=== PATIENT | male | born 1945 | race Caucasian/White ===

== ENCOUNTER 2019-11-15 19:34 | Inpatient (IN) | payer OTHER ==
--- NOTE | 2019-11-15 19:48 | PDOC ---
Attending Attestation - Resident Resident Name: Franklin Young - ED Attending Attestation I have performed the following: I have examined & evaluated the patient, The case was reviewed & discussed with the resident, I agree w/resident's findings & plan - HPI HPI: 11/15/19 20:17 see resident hpi - Physicial Exam PE: 11/15/19 20:17 see resident exam - Medical Decision Making 11/15/19 20:18 74-year-old male sent from a half-way facility with incomplete history, apparently needing admission due to aspiration risk and possible G-tube candidacy Plan for labs and admission to medical service for further evaluation and management Discharge - Discharge Information Problems reviewed: Yes Clinical Impression/Diagnosis: Unable to eat, At risk for aspiration Condition: Fair - Follow up/Referral Referrals: Christ Holder MD [Primary Care Provider] - - Patient Discharge Instructions - Post Discharge Activity
[2019-11-15 19:58] VITALS: BMI 26.9
--- NOTE | 2019-11-15 21:28 | PDOC ---
History of Present Illness - General Chief Complaint: G Tube Problem Stated Complaint: G TUBE REPLACEMENT Time Seen by Provider: 11/15/19 19:45 - History of Present Illness Initial Comments: 11/15/19 21:21 74 yo male presenting to ED with pmh of chronic resp failure, Sepsis, Cdif, and myasthenia gravis sent from [facility] for G Tube placement referred by Dr. Holder. Per [facility] nurse pt had a spit and swallow test 2-3 days ago and states that he was silently swallowing his food and medications. Since then he has been NPO. Pt was recently discharged from [facility] on 11/09 due to hypotension. He was diagnosed with septicemia and right sided pic line and suprapubic catheter were placed. He was also started on Cefazolin and Vancomycin. Per [facility] nurse pt also had bilateral ext swelling starting since he was discharged from [facility]. Today pt is nonverbal and answers yes no questions. He explains he has not had bowel movement in few days due to not eating since Friday. He has been also having chronic swelling of his extremities but has been increased in the past few weeks. Pt besides that has denied any fevers, chills, or chest pain. PMH: Chronic resp failure Septicemia Myasthenia gravis osteomyelitis meds per [facility] nurse: Percocet, Cefazolin and vancomycin Allergies: Penicillin, aspirin, procainamide PSh: colostomy, suprapubic cath, thoracostomy Social: From [facility] PCP: Dr. Holder Past History - Medical History Allergies/Adverse Reactions: Allergies Allergy/AdvReac Type Severity Reaction Status Date / Time aspirin Allergy Unknown Verified 11/15/19 21:31 Penicillins Allergy Unknown Verified 11/15/19 21:31 procainamide Allergy Unknown Verified 11/15/19 21:31 - Psycho-Social/Smoking History Smoking History: Never smoked - Substance Abuse Hx (Audit-C & DAST Scrn) How often the patient has a drink containing alcohol: Never Score: In Men: 4 or > Positive; In Women: 3 or > Positive: 0 Screen Result (Pos requires Nsg. Audit-10AR): Negative In the last yr the pt used illegal drug/Rx for NonMed reason: No Score: Yes response is considered Positive: 0 Screen Result (Positive result requires Nsg. DAST-10): Negative Review of Systems - Review of Systems Comments:: 11/15/19 21:34 GENERAL/CONSTITUTIONAL: No fever or chills. No change in weakness. HEAD, EYES, EARS, NOSE AND THROAT: No change in vision. No ear pain or discharge. CARDIOVASCULAR: No chest pain. Explains he is having trouble breathing. RESPIRATORY: No cough, wheezing, or hemoptysis. GASTROINTESTINAL: Nausea and abdominal pain GENITOURINARY: No dysuria, frequency, or change in urination. MUSCULOSKELETAL:Swelling of all extremities SKIN: Multiple pressure wounds around body NEUROLOGIC: No headache, vertigo, loss of consciousness, or change in strength/sensation. ENDOCRINE: Has not eaten anything in two days ALLERGIC/IMMUNOLOGIC: No hives or skin allergy. *Physical Exam - Vital Signs Last Vital Signs Temp Pulse Resp BP Pulse Ox 97.1 F L 89 25 H 98/71 100 11/15/19 19:39 11/15/19 19:39 11/15/19 20:00 11/15/19 19:39 11/15/19 19:39 - Physical Exam 11/15/19 21:36 GENERAL: Awake, alert, in no acute distress HEAD: No signs of trauma, normocephalic, atraumatic EYES: PERRLA, EOMI, sclera anicteric, conjunctiva clear ENT: Auricles normal inspection, hearing grossly normal, nares patent, NECK:Thoracostomy tube looks patent and in place LUNGS: Bilateral rales. HEART: Regular rate and rhythm, normal S1 and S2, no murmurs, rubs or gallops, peripheral pulses normal and equal bilaterally. ABDOMEN: Soft, nontender, normoactive bowel sounds. Colostomy tube placed on right side EXTREMITIES : 4+ edema on all ext NEUROLOGICAL: Cranial nerves II through XII grossly intact. Unable to speak or walk SKIN: Grade 2 wound on L heel, grade 3 wound on left leg, Grade 4 wound on right leg, grade 1 wound on right heel, wounds all along gluteus region Heart Score/ECG Review - ECG Impressions Comment:: 11/15/19 22:29 Normal Sinus rhythm at [address] segment changes Prolonged QRS RBBB Normal [place] and QT interval ED Treatment Course - LABORATORY CBC & Chemistry Diagram: 11/15/19 21:30 11/15/19 21:30 Medical Decision Making - Medical Decision Making 11/15/19 21:39 74 yo male with pmh of myasthenia grava, septicemia, osteomyelitis, with thorocostomy, suprapubic cath, and pic line presents to the ED for G tube placement because he has been silently aspirating for few days. Pt has received CBC, CMP, EKG, UA, CXR. His ventilator setting is on RR 15 tidal volume 400 PEEP 10. Pt will be admitted. 11/15/19 22:21 Xray looks like pneumonitis will give Clindamycin. 11/16/19 02:18 Talked to admitting [employer] [employer] on the phone will admit to . Signed out pt to night team Discharge - Discharge Information Problems reviewed: Yes Clinical Impression/Diagnosis: Unable to eat, At risk for aspiration Condition: Guarded - Admission Yes - Follow up/Referral - Patient Discharge Instructions - Post Discharge Activity
[2019-11-15 22:12] LABS: BASO % 0.3 % (0-2.0); EOS % 1.7 % (0-4.5); HEMATOCRIT 26.5 % (35.4-49); HEMOGLOBIN 8.5 GM/dL (11.7-16.9); LYMPH % 17.1 % (8-40); MCH 28.5 pg (25.7-33.7); MEAN CELL VOLUME 89.2 fl (80-96); MEAN PLT VOLUME 6.7 fl (7.5-11.1); MONO % 6.2 % (3.8-10.2); NEUT % 74.7 % (42.8-82.8); PLATELET COUNT 382 K/MM3 (134-434); RBC 2.98 M/mm3 (4.00-5.60); RDW 24.5 % (11.9-15.9); WHITE BLOOD COUNT 9.9 K/mm3 (4.0-10.0)
[2019-11-15] MEDS ORDERED: CLINDAMYCIN 600MG PREMIX IVPB 600 MG/50 ML BAG IVPB ONE ×2 (22:20→22:36)
[2019-11-15 22:44] LABS: ANISOCYTOSIS 3+; TARGET CELLS 1+
[2019-11-15 22:45] LABS: PLATELET ESTIMATE INCREASED
[2019-11-15 22:52] LABS: ALBUMIN 0.7 g/dl (3.4-5.0); ALK PHOS 405 U/L (45-117); ANION GAP 8 MMOL/L (8-16); BILIRUBIN,TOTAL 0.2 mg/dL (0.2-1); BLOOD UREA NITROGEN 35.7 mg/dL (7-18); CALCIUM 7.3 mg/dL (8.5-10.1); CHLORIDE 106 mmol/L (98-107); CO2 22 mmol/L (21-32); CREATININE 0.6 mg/dL (0.55-1.3); GLUCOSE,RANDOM 114 mg/dL (74-106); POTASSIUM 4.3 mmol/L (3.5-5.1); SGOT/AST 12 U/L (15-37); SODIUM 136 mmol/L (136-145); TOT PROT 4.2 g/dl (6.4-8.2)
[2019-11-15 22:53] LABS: SGPT/ALT < 6 U/L (13-61)
[2019-11-15] MEDS ORDERED: ONDANSETRON 4 MG/2 ML VIAL IVPUSH ONE (23:18)
--- NOTE | 2019-11-15 23:43 | HP ---
Admitting History and Physical - Primary Care Physician PCP: Christ Holder ([facility]) - Admission Chief Complaint: Dysphagia, G- Tube Placement History of Present Illness: This is a 74 y/o male from [facility] with a PMHx of Chronic Respiratory Failure (Trach- vent dep), Myasthenia Gravis, HLD, DM, GERD, Pneumonia, Chronic lower extremity edema, recent admission for Septicemia- [facility] d/c 11/09. Per ED records: patient had a spit and swallow test 2-3 days ago- silent aspiration. He has been NPO requiring PEG placement. Per [place] records patient is on Cefalozin IV, Vancomycin PO. Also, patient was noted to have increased edema to lower extremities. History Source: Transfer Record Limitations to Obtaining History: Clinical Condition - Past Medical History Cardiovascular: Yes: Hyperlipdemia Pulmonary: Yes: O2 Dependent, Pneumonia (VAP), Other (Chronic Respiratory Failure) Gastrointestinal: Yes: GERD Endocrine: Yes: Diabetes Mellitus Additional Past Medical History: Myasthenia Gravis - Past Surgical History Past Surgical History: Yes: Colostomy Additional Past Surgical History: Tracheostomy Suprapubic Catheter - Smoking History Smoking history: Never smoked - Alcohol/Substance Use Hx Alcohol Use: No (Unknown) History of Substance Use: reports: None (Unknown) - Social History Usual Living Arrangement: Yes: Care Home ADL: Support Services History of Recent Travel: No Home Medications - Allergies Allergies/Adverse Reactions: Allergies Allergy/AdvReac Type Severity Reaction Status Date / Time aspirin Allergy Unknown Verified 11/15/19 21:31 Penicillins Allergy Unknown Verified 11/15/19 21:31 procainamide Allergy Unknown Verified 11/15/19 21:31 - Home Medications Home Medications: Ambulatory Orders Acetaminophen 325 mg PO PRN 11/16/19 Cefazolin [Ancef -] 2 gm IV ASDIR 11/16/19 Famotidine [Pepcid] 20 mg PO BID 11/16/19 Magnesium Oxide [Magnesium Oxide 400] 241.3 mg PO DAILY 11/16/19 Ondansetron [Zofran -] 8 mg PO BID 11/16/19 Vancomycin Oral Solution [Vancocin *Oral Solution*] 2.5 ml PO ASDIR 11/16/19 Family Medical History Family History: Unable to Obtain Review of Systems Unable to obtain ROS, reason: Clinical Condition Physical Examination Vital Signs: Vital Signs Temperature 97.1 F L 11/15/19 19:39 Pulse Rate 89 11/15/19 19:39 Respiratory Rate 25 H 11/15/19 20:00 Blood Pressure 98/71 11/15/19 19:39 O2 Sat by Pulse Oximetry (%) 100 11/15/19 19:39 Constitutional: Yes: Mild Distress, Pallor Eyes: Yes: Conjunctiva Clear, PERRL HENT: Yes: Atraumatic, Normocephalic Neck: Yes: Supple, Other (Trach-vent) Cardiovascular: Yes: Regular Rate and Rhythm, S1, S2 Respiratory: Yes: Diminished, Rhonchi (diffuse, coarse throughout), Other (Trach-vent) Gastrointestinal: Yes: Soft, Hypoactive Bowel Sounds, Other (colostomy) Renal/: Yes: Other (suprapubic catheter with scant yellow urine in drainage bag) Breast(s): Yes: WNL Musculoskeletal: Yes: Muscle Weakness Edema: Yes Edema: LLE: 4+, RLE: 4+ Peripheral Pulses WNL: Yes Integumentary: Yes: Pressure Ulcer (sacrum- Stage 4 R- trochanter L- buttock) Neurological: Yes: Alert, Weakness Psychiatric: Yes: Alert Labs: CBC, BMP 11/15/19 21:30 11/15/19 21:30 Laboratory Results - last 24 hr 11/15/19 11/15/19 11/16/19 21:30 21:30 02:00 WBC 9.9 RBC 2.98 L Hgb 8.5 L Hct 26.5 L MCV 89.2 MCH 28.5 MCHC 32.0 RDW 24.5 H Plt Count 382 MPV 6.7 L Absolute Neuts (auto) 7.4 Neutrophils % 74.7 Lymphocytes % 17.1 Monocytes % 6.2 Eosinophils % 1.7 Basophils % 0.3 Nucleated RBC % 0 Hypochromia 2+ Platelet Estimate Increased Platelet Comment No clumping noted Polychromasia 1+ Anisocytosis 3+ Microcytosis 2+ Target Cells 1+ Stomatocytes 1+ Sodium 136 Potassium 4.3 Chloride 106 Carbon Dioxide 22 Anion Gap 8 BUN 35.7 H Creatinine 0.6 Est GFR (CKD-EPI)AfAm 116.42 Est GFR (CKD-EPI)NonAf 100.45 Random Glucose 114 H Lactic Acid Calcium 7.3 L Total Bilirubin 0.2 AST 12 L ALT < 6 L Alkaline Phosphatase 405 H Total Protein 4.2 L Albumin 0.7 L Urine Color Yellow Urine Appearance Turbid Urine pH 5.0 Ur Specific [place] 1.024 Urine Protein 2+ H Urine Glucose (UA) Negative Urine Ketones Trace H Urine Blood 3+ H Urine Nitrite Negative Urine Bilirubin Negative Urine Urobilinogen 0.2 Ur Leukocyte Esterase 3+ H Urine WBC (Auto) 8166 Urine RBC (Auto) 805.3 Urine Casts (Auto) 23 U Pathogenic Cast Auto None seen U Epithel Cells (Auto) 12 Urine Bacteria (Auto) 209 Urine Yeast (Auto) Many 11/16/19 03:20 WBC RBC Hgb Hct MCV MCH MCHC RDW Plt Count MPV Absolute Neuts (auto) Neutrophils % Lymphocytes % Monocytes % Eosinophils % Basophils % Nucleated RBC % Hypochromia Platelet Estimate Platelet Comment Polychromasia Anisocytosis Microcytosis Target Cells Stomatocytes Sodium Potassium Chloride Carbon Dioxide Anion Gap BUN Creatinine Est GFR (CKD-EPI)AfAm Est GFR (CKD-EPI)NonAf Random Glucose Lactic Acid 2.1 H Calcium Total Bilirubin AST ALT Alkaline Phosphatase Total Protein Albumin Urine Color Urine Appearance Urine pH Ur Specific [place] Urine Protein Urine Glucose (UA) Urine Ketones Urine Blood Urine Nitrite Urine Bilirubin Urine Urobilinogen Ur Leukocyte Esterase Urine WBC (Auto) Urine RBC (Auto) Urine Casts (Auto) U Pathogenic Cast Auto U Epithel Cells (Auto) Urine Bacteria (Auto) Urine Yeast (Auto) Intake & Output 11/13/19 11/14/19 11/15/19 11/16/19 23:59 23:59 23:59 23:59 Weight 71.305 kg Imaging - Results Chest X-ray: Image Reviewed EKG: Image Reviewed Problem List - Problems (1) Pneumonitis Assessment/Plan: r/o COVID-19 Infection vs Aspiration vs VAP SMART-LAUNCH STEWARD 2, low risk CURB65 2, mod risk qSOFA 2, high risk Chest Xray image reviewed-pulm vasc congestion, ?infiltrates Blood Cultures-pending Urine Culture- pending Clindamycin given in ED Will start on Vancomycin for broad spectrum coverage Appreciate ID consult Aspiration Precautions Monitor CBC, CMP Monitor vitals Code(s): J18.9 - PNEUMONIA, UNSPECIFIED ORGANISM (2) Complicated UTI (urinary tract infection) Assessment/Plan: Likely due to Instrumentation vs Failed Outpatient Therapy UA showed- +2 protein, +3 blood, trace ketones, +3 leukocyte esterase, 8166 WBC, 209 bacteria Urine Culture-pending Clindamycin given in ED Will continue Vancomycin Appreciate ID consult Monitor CBC Monitor vitals Code(s): N39.0 - URINARY TRACT INFECTION, SITE NOT SPECIFIED (3) Chronic respiratory failure Assessment/Plan: Trach- Vent support Continue per NH settings Chest Xray image reviewed Appreciate Pulmonology consult Trach care Monitor vitals Aspiration Precautions Code(s): J96.10 - CHRONIC RESPIRATORY FAILURE, UNSP W HYPOXIA OR HYPERCAPNIA (4) Dysphagia Assessment/Plan: Per NH failed Spit/Swallow exam Hx Myasthenia Gravis Peg Placement Appreciate IR Consult NPO Aspiration Precautions O2- trach-vent Code(s): R13.10 - DYSPHAGIA, UNSPECIFIED (5) Myasthenia gravis Assessment/Plan: Will continue to monitor and treat with interventions accordingly Code(s): G70.00 - MYASTHENIA GRAVIS WITHOUT (ACUTE) EXACERBATION (6) Diabetes mellitus Assessment/Plan: stable BGMs Hold ISS, NPO Resume ISS when Enteral Feedings begin Monitor CMP Code(s): E11.9 - TYPE 2 DIABETES MELLITUS WITHOUT COMPLICATIONS (7) Anemia Assessment/Plan: Hgb 8.5, no avail lab to compare Monitor CBC closely Will transfuse if Hgb < 7.0 No stool occult- Colostomy Monitor vitals Code(s): D64.9 - ANEMIA, UNSPECIFIED (8) HLD (hyperlipidemia) Assessment/Plan: Hold home med for now Code(s): E78.5 - HYPERLIPIDEMIA, UNSPECIFIED (9) Encounter for screening laboratory testing for COVID-19 virus Assessment/Plan: SMART-LAUNCH STEWARD 1, low risk Covid PCR-pending Isolation Precautions Code(s): Z11.59 - ENCOUNTER FOR SCREENING FOR OTHER VIRAL DISEASES (10) Functional quadriplegia Assessment/Plan: Complete immobility due to Frailty, Myasthemia Gravis Requires Total Care Turn/Reposition Q2h Yovana Lift as needed Fall Precautions Code(s): R53.2 - FUNCTIONAL QUADRIPLEGIA Assessment/Plan This is a 74 y/o male from [facility] with a PMHx of Chronic Respiratory Failure (Trach- vent dep), Myasthenia Gravis, HLD, DM, GERD, Pneumonia, Chronic lower extremity edema, recent admission for Septicemia- [facility] d/c 7/15. Admitted to [facility] for Pneumonitis, Complicated UTI, Chronic Respiratory Failure with Hypoxia, G- Tube Placement for further evaluation of their emergent condition. Plan: See Problem List FEN Fluid Restriction Replete lytes prn NPO DVT ppx TEDs Heparin SQ Code Status: Full Code Dispo: Requires Inpatient Care Visit type - Medication Review Med list reviewed for High Risk Meds patients 65 and older: Yes - Emergency Visit Emergency Visit: Yes ED Registration Date: 11/15/19 Care time: The patient presented to the Emergency Department on the above date and was hospitalized for further evaluation of their emergent condition. - New Patient This patient is new to me today: Yes Date on this admission: 11/15/19 - Critical Care Critical Care patient: No
[2019-11-16 02:47] LABS: EPI CELLS 12 /uL (0-25.1); HYALINE CASTS 23 /uL (0-3.1); URINE APPEARANCE TURBID; URINE BACTERIA 209 /uL (0-1359); URINE BILIRUBIN NEGATIVE (NEGATIVE); URINE COLOR YELLOW; URINE GLUCOSE (UA) NEGATIVE (NEGATIVE); URINE KETONE TRACE (NEGATIVE); URINE LEUK ESTERASE 3+ (NEGATIVE); URINE NITRITE NEGATIVE (NEGATIVE); URINE PROTEIN 2+ (NEGATIVE); URINE UROBILINOGEN 0.2 mg/dL (0.2-1.0); URINE WBC 8166 /uL (0-25.8)
[2019-11-16] MEDS ORDERED: VANCOMYCIN HCL 1,250 MG in DEXTROSE 5%-WATER - 250 ML IVPB ONE (03:02)
[2019-11-16 03:33] LABS: URINE RBC 805.3 /uL (0-23.9); YEAST MANY (NEGATIVE)
[2019-11-16] MEDS ORDERED: ACETAMINOPHEN 1000 MG/100 ML VIAL (NON FORMULARY) IVPB ONE (05:04)
[2019-11-16] MEDS ORDERED: D5-NS + 20 MEQ KCL - 20 MEQ/1,000 ML INFUS.BAG IV SCH ×2 (10:15→18:06)
[2019-11-16] MEDS ORDERED: ACETAMINOPHEN 650 MG SUPP.RECT PR PRN (10:19)
[2019-11-16] MEDS ORDERED: ONDANSETRON 4 MG/2 ML VIAL IVPUSH PRN (10:20)
--- NOTE | 2019-11-16 10:22 | PN ---
Progress Note, Physician Chief Complaint: Aspiration pneumonia PEG placement Anasarca - Current Medication List Current Medications: Active Medications Dextrose/Sodium Chloride (Dextrose 5%-Normal Saline+20 Meq Kcl -) 20 meq in 1,000 mls @ 75 mls/hr IV ASDIR THEODORE - Objective Vital Signs: Vital Signs Temperature 97.3 F L 11/16/19 00:00 Pulse Rate 62 11/16/19 06:40 Respiratory Rate 21 H 11/16/19 06:40 Blood Pressure 91/43 L 11/16/19 07:28 O2 Sat by Pulse Oximetry (%) 95 11/16/19 06:40 Constitutional: Yes: Well Nourished, No Distress, Calm Cardiovascular: Yes: Regular Rate and Rhythm Respiratory: Yes: Regular, Rhonchi (diffuse) Gastrointestinal: Yes: Normal Bowel Sounds, Soft Extremities: Yes: Other (generalized atrophy) Edema: Yes Edema: LUE: 3+, RUE: 2+, LLE: 3+, RLE: 3+ Peripheral Pulses WNL: Yes Integumentary: Yes: Pressure Ulcer (Stage 4 sacral ulcer) Neurological: Yes: Alert, Pre-Existing Deficit Psychiatric: Yes: Alert Labs: CBC, BMP 11/15/19 21:30 11/15/19 21:30 Problem List - Problems (1) Chronic respiratory failure Assessment/Plan: -Pulmonary consult -[facility] vent Problems reviewed: Yes Code(s): J96.10 - CHRONIC RESPIRATORY FAILURE, UNSP W HYPOXIA OR HYPERCAPNIA (2) Aspiration pneumonia Assessment/Plan: -ID consult -Continue Cefazolin -PEG placement via IR -HOB >30 degrees -NPO -ID consult -IV abx -Cultures pending -Pulmonary consult -Bronchodilators Problems reviewed: Yes Code(s): J69.0 - PNEUMONITIS DUE TO INHALATION OF FOOD AND VOMIT (3) Dysphagia Assessment/Plan: -Silent aspiration on MBS at [place] -PEG placement -IR consult Problems reviewed: Yes Code(s): R13.10 - DYSPHAGIA, UNSPECIFIED (4) Anemia Assessment/Plan: -Check Iron, B12, Thyroid profile -Check stool OB -Monitor trend -Transfuse only if Hg<7.0 to avoid fluid overload Problems reviewed: Yes Code(s): D64.9 - ANEMIA, UNSPECIFIED (5) Generalized edema Assessment/Plan: -Furosemide once now -Furosemide 40 mg IVP BID Problems reviewed: Yes Code(s): R60.1 - GENERALIZED EDEMA Assessment/Plan See problem list
[2019-11-16] MEDS ORDERED: ceFAZolin SODIUM 1 GM VIAL IV SCH (10:30)
[2019-11-16 10:47] LABS: BASO % 0.1 % (0-2.0); HEMOGLOBIN 8.2 GM/dL (11.7-16.9); LYMPH % 4.3 % (8-40); MCH 28.3 pg (25.7-33.7); MCHC 31.6 g/dl (32.0-35.9); MEAN CELL VOLUME 89.8 fl (80-96); MEAN PLT VOLUME 6.7 fl (7.5-11.1); MONO % 4.1 % (3.8-10.2); NEUT % 91.5 % (42.8-82.8); PLATELET COUNT 323 K/MM3 (134-434); RBC 2.89 M/mm3 (4.00-5.60); RDW 24.5 % (11.9-15.9); WHITE BLOOD COUNT 14.3 K/mm3 (4.0-10.0)
[2019-11-16] MEDS ORDERED: ENOXAPARIN NA (PORCINE) 40 MG/0.4 ML DISP.SYRIN SQ ONE (10:52)
[2019-11-16] MEDS ORDERED: FAMOTIDINE 20 MG/50 ML IVPB 20 MG/50 ML MG IVPB ONE (10:52)
[2019-11-16] MEDS: ENOXAPARIN NA (PORCINE) 40 MG/0.4 ML DISP.SYRIN SQ SCH (11:18)
[2019-11-16] MEDS: FAMOTIDINE 20 MG/50 ML IVPB 20 MG/50 ML MG IVPB SCH ×2 (11:18→22:24)
[2019-11-16 11:20] LABS: ALBUMIN 0.7 g/dl (3.4-5.0); ALK PHOS 392 U/L (45-117); ANION GAP 10 MMOL/L (8-16); BILIRUBIN,TOTAL 0.2 mg/dL (0.2-1); BLOOD UREA NITROGEN 38.2 mg/dL (7-18); CALCIUM 7.2 mg/dL (8.5-10.1); CHLORIDE 108 mmol/L (98-107); CO2 18 mmol/L (21-32); CREATININE 0.6 mg/dL (0.55-1.3); GLUCOSE,RANDOM 126 mg/dL (74-106); LDH 282 U/L (87-246); MAGNESIUM 1.8 mg/dL (1.8-2.4); POTASSIUM 4.4 mmol/L (3.5-5.1); SGOT/AST 22 U/L (15-37); SODIUM 136 mmol/L (136-145)
[2019-11-16 11:51] LABS: SGPT/ALT < 6 U/L (13-61)
--- NOTE | 2019-11-16 12:05 | PN ---
Progress Note (short form) - Note Progress Note: ID CONSULT DICTATED WASTING SYNDROME ASPIRATION PNEUMONIA V. HCAP CHRONIC RESP FAILURE ? SACRAL OSTEOMYELITIS HX C DIFFICILE COLITIS PCN ALLERGY AWAIT C/S EMPIRIC CEFEPIME/ VANCOMYCIN
[2019-11-16 12:12] LABS: ANISOCYTOSIS 2+; MACROCYTOSIS 1+; OVALOCYTE 1+; PLATELET ESTIMATE NORMAL
[2019-11-16] MEDS ORDERED: CEFEPIME 1 GM/100 ML BAG IVPB ONE (12:23)
[2019-11-16] MEDS: CEFEPIME 1 GM in DEXTROSE 5%-WATER 100 ML IVPB SCH ×2 (12:30→19:56)
--- NOTE | 2019-11-16 13:14 | EKG ---
Test Reason : Blood Pressure : / mmHG Vent. Rate : 087 BPM Atrial Rate : 087 BPM P-R Int : 150 ms QRS Dur : 142 ms QT Int : 408 ms P-R-T Axes : 074 042 003 degrees QTc Int : 490 ms NORMAL SINUS RHYTHM RIGHT BUNDLE BRANCH BLOCK ABNORMAL ECG NO PREVIOUS ECGS AVAILABLE Confirmed by Manuel Ray ([id number]) on 11/16/2019 1:14:07 PM Referred By: Confirmed By:Manuel Ray
--- NOTE | 2019-11-16 13:35 | CON.PULM ---
Consult Consult Specialty:: PULM/CCM Referred by:: MAHENDRA Reason for Consultation:: Chronic Respiratory Failure - History of Present Illness Chief Complaint: SOB History of Present Illness: 74 M, Chronic Respiratory Failure via Trach, ventilator dependent, Myasthenia Gravis, HLD, DM, GERD, Pneumonia, and chronic lower extremity edema. Apparent recent admission to [facility] for Sepsis. Admitted via the ER due to concern for recurrent aspiration and sepsis. He apparently was previously treated with Cefalozin & Vancomycin. Concern for recurrent aspiration. No further history is obtainable. - History Source History Provided By: Medical Record Limitations to Obtaining History: Clinical Condition - Past Medical History Cardio/Vascular: Yes: Hyperlipdemia Pulmonary: Yes: O2 Dependent, Pneumonia (VAP), Other (Chronic Respiratory Failure) Gastrointestinal: Yes: GERD Endocrine: Yes: Diabetes Mellitus - Past Surgical History Past Surgical History: Yes: Colostomy - Alcohol/Substance Use Hx Alcohol Use: No (Unknown) History of Substance Use: reports: None (Unknown) - Smoking History Smoking history: Never smoked - Social History ADL: Support Services History of Recent Travel: No Home Medications - Allergies Allergies/Adverse Reactions: Allergies Allergy/AdvReac Type Severity Reaction Status Date / Time aspirin Allergy Unknown Verified 11/15/19 21:31 Penicillins Allergy Unknown Verified 11/15/19 21:31 procainamide Allergy Unknown Verified 11/15/19 21:31 - Home Medications Home Medications: Ambulatory Orders Acetaminophen 325 mg PO PRN 11/16/19 Cefazolin [Ancef -] 2 gm IV ASDIR 11/16/19 Famotidine [Pepcid] 20 mg PO BID 11/16/19 Magnesium Oxide [Magnesium Oxide 400] 241.3 mg PO DAILY 11/16/19 Ondansetron [Zofran -] 8 mg PO BID 11/16/19 Vancomycin Oral Solution [Vancocin *Oral Solution*] 2.5 ml PO ASDIR 11/16/19 Review of Systems Unable to obtain ROS, reason: Not able to obatin Physical Exam Vital Sings: Vital Signs Temperature 97.3 F L 11/16/19 00:00 Pulse Rate 62 11/16/19 06:40 Respiratory Rate 23 H 11/16/19 12:22 Blood Pressure 91/43 L 11/16/19 07:28 O2 Sat by Pulse Oximetry (%) 95 11/16/19 06:40 Constitutional: Yes: Thin, Other (Vented) Eyes: Yes: Conjunctiva Clear HENT: Yes: Atraumatic, Normocephalic Neck: Yes: Trachea Midline, Other (Trached ) Cardiovascular: Yes: Regular Rate and Rhythm Respiratory: Yes: Diminished, Mechanically Ventilated, Rhonchi. No: Stridor, Tachypnea, Wheezes ...Inspection: Yes: WNL ...Clubbing: No Gastrointestinal: Yes: Normal Bowel Sounds, Soft Musculoskeletal: Yes: WNL Extremities: Yes: WNL Edema: No Peripheral Pulses WNL: Yes Integumentary: Yes: Pressure Ulcer, Skin Tear, Venous Stasis Changes Neurological: Yes: Confusion, Lethargy Labs: CBC, BMP 11/16/19 10:25 11/16/19 10:25 Imaging - Results Chest X-ray: Report Reviewed, Image Reviewed Problem List - Problems (1) Aspiration pneumonia Code(s): J69.0 - PNEUMONITIS DUE TO INHALATION OF FOOD AND VOMIT (2) At risk for aspiration Code(s): Z91.89 - OTH PERSONAL RISK FACTORS, NOT ELSEWHERE CLASSIFIED (3) Chronic respiratory failure Code(s): J96.10 - CHRONIC RESPIRATORY FAILURE, UNSP W HYPOXIA OR HYPERCAPNIA (4) Diabetes mellitus Code(s): E11.9 - TYPE 2 DIABETES MELLITUS WITHOUT COMPLICATIONS (5) Dysphagia Code(s): R13.10 - DYSPHAGIA, UNSPECIFIED (6) HLD (hyperlipidemia) Code(s): E78.5 - HYPERLIPIDEMIA, UNSPECIFIED (7) Myasthenia gravis Code(s): G70.00 - MYASTHENIA GRAVIS WITHOUT (ACUTE) EXACERBATION (8) Pneumonitis Code(s): J18.9 - PNEUMONIA, UNSPECIFIED ORGANISM (9) Unable to eat Code(s): F50.89 - OTHER SPECIFIED EATING DISORDER Assessment/Plan AC Mode of vent ABX Per ID Hassan-culture VTE prophylaxis Monitor off systemic steroids IVF Vent floor monitoring Will follow Thank you. Dr Johnson
[2019-11-16] MEDS: VANCOMYCIN 1 GRAM (PRE-DOCKED) 1,000 MG/250 ML BAG IVPB SCH (17:44)
[2019-11-16] MEDS ORDERED: FUROSEMIDE 40 MG/4 ML INJECTABLE VIAL IVPUSH ONE (18:06)
--- NOTE | 2019-11-16 18:21 | CONS ---
DATE OF CONSULTATION: DATE OF DICTATION: 11/16/2019 INFECTIOUS DISEASE CONSULTATION HISTORY OF PRESENT ILLNESS: The patient is a 74-year-old male evaluated for possible pneumonia. History was obtained from the chart, as he cannot give a history. According to the notes, he had a long and complicated hospital stay at [facility]. At that time, he had been diagnosed with sepsis due to pneumonia and urinary tract infection. His course was complicated by sacral decubitus ulcer, chronic osteomyelitis, C. difficile colitis. He was transferred to a skilled nursing on November 10, 2019. According to the notes, he has had poor oral intake while at the skilled nursing, and consideration was given to placement of a feeding gastrostomy tube. He was also noted to have worsening lower extremity edema. Upon review of the skilled nursing notes, he had been receiving cephazolin via a PICC line presumably for chronic osteomyelitis. In addition, he was on p.o. vancomycin for C. difficile colitis. He is awake, however he is not verbally responsive, and he is unable to offer any additional details. No reports of labored breathing, cough, vomiting. He does have a suprapubic tube draining concentrated urine. No diarrhea was reported in the emergency room. PAST MEDICAL HISTORY: Positive for myasthenia gravis, history of chronic respiratory failure status post tracheostomy, diabetes mellitus, hyperlipidemia, gastroesophageal reflux, C. difficile colitis. PAST SURGICAL HISTORY: Status post tracheostomy, colostomy, suprapubic tube, PICC line. ALLERGIES: ASPIRIN, PENICILLIN, and PROCAINAMIDE. The nature of the PENICILLIN allergy is not known; however, he has been receiving a cephalosporin at the skilled nursing. MEDICATION: Include: 1. Clindamycin. 2. Lovenox. 3. Tylenol. 4. Pepcid. SOCIAL HISTORY: As per HPI. No documented tobacco or alcohol use history. SYSTEMS REVIEW: Neurologic: Blood as per myasthenia gravis, no loss of consciousness, seizure activity, focal weakness. Cardiac: Negative for chest pain or palpitations. Respiratory: As per HPI. Gastrointestinal: Status post colostomy. Genitourinary: Status post suprapubic tube. LABORATORY DATA: White count 14.3, 91 neutrophils, 4 lymphocytes, 4 monocytes. Hematocrit 26.0, platelet count 323. D-dimer 1097. BUN 38, creatinine 0.6, glucose 126, total bilirubin 0.2, alkaline phosphatase 392, AST 22. Urinalysis 8166 white cells. Blood and urine cultures are pending. Chest x-ray shows increased markings bilaterally. PHYSICAL EXAMINATION: General: On physical examination, he is chronically ill appearing. Vital signs: Temperature 97.3, blood pressure 91/43, pulse 62, respirations 21 per minute. Positive temporal wasting. Patient is pale appearing, dry mucous membranes. Tracheostomy is in place. Cardiovascular: Heart sounds S1, S2. Lungs: Diminished breath sounds bilaterally. Abdomen: Soft. There is a colostomy and a suprapubic tube, healed surgical scar. There is a stage 4 sacral decubitus ulcer. Extremities: There is generalized edema of all 4 extremities, 3+. PICC line is in place right upper extremity, no erythema or tenderness at that site. IMPRESSION: 1. Wasting syndrome. 2. Aspiration versus healthcare-acquired pneumonia. 3. Chronic respiratory failure. 4. Sacral osteomyelitis by history. 5. History of Clostridium difficile colitis. 6. PENICILLIN allergy. 7. Elevated alkaline phosphatase likely secondary to bone. 8. Myasthenia gravis. Await sepsis workup. Empiric antibiotic coverage with vancomycin and cefepime. Will review skilled nursing notes to determine duration of therapy initially planned for his osteomyelitis as well as the duration of therapy for his Clostridium difficile colitis. Prognosis is guarded. Thank you for the kind referral. SANGEETA TAYLOR M.D. JOSÉ [id number]
[2019-11-16] MEDS ORDERED: ACETAMINOPHEN 1000 MG/100 ML VIAL (NON FORMULARY) IVPB PRN (18:44)
[2019-11-16] MEDS ORDERED: CEFEPIME HCL 1 GM VIAL (RESTRICTED TO ID) ONE (19:51)
[2019-11-16] MEDS ORDERED: DEXTROSE 5%-WATER 100 ML IVPB ONE (19:52)
[2019-11-16] MEDS: ALBUTEROL SO4 HFA INHALER IH SCH (21:24)
--- NOTE | 2019-11-16 22:06 | HOSP ---
Subjective - Review of Symptoms Events since last encounter: Hospitalist Encounter Notified by the RN that she is unable to get a blood pressure reading on the patient, and that this has been going on since this afternoon. I was asked to assess. Arrived to bedside, patient is awake, non-verbal at baseline (trach- vent dependent). Several attempts for manual BP- unsuccessful Plan EKG Temp Leasing Director Consult Physical Examination Vital Signs: Vital Signs Temperature 97.3 F L 11/16/19 00:00 Pulse Rate 67 11/16/19 14:20 Respiratory Rate 18 11/16/19 20:15 Blood Pressure 129/112 H 11/16/19 14:20 O2 Sat by Pulse Oximetry (%) 91 L 11/16/19 15:38 Constitutional: Yes: Pallor Eyes: Yes: Conjunctiva Clear (pale), EOM Intact, PERRL HENT: Yes: Atraumatic, Normocephalic Neck: Yes: Other (Trach- Vent Dependent) Cardiovascular: Yes: Regular Rate and Rhythm, S1, S2 Respiratory: Yes: Diminished, Other (trach-vent) Gastrointestinal: Yes: Soft, Hypoactive Bowel Sounds, Other (colostomy) Renal/: Yes: Other (suprapubic catheter) Breast(s): Yes: WNL Musculoskeletal: Yes: Muscle Weakness Extremities: Yes: Cool Edema: Yes Edema: LLE: 4+, RLE: 4+ Integumentary: Yes: Erythema, Rash Wound/Incision: Yes: Reddened Neurological: Yes: Alert Psychiatric: Yes: Alert Labs: CBC, BMP 11/16/19 10:25 11/16/19 10:25 Hospitalist Encounter Assessment: This is a 74 y/o male from [facility] with a PMHx of Chronic Respiratory Failure (Trach- vent dep), Myasthenia Gravis, HLD, DM, GERD, Pneumonia, Chronic lower extremity edema, recent admission for Septicemia- [facility] d/c 11/09. Admitted for Complicated UTI, Chronic Respiratory Failure with Hypoxia, G- Tube Placement. Outcome: EKG reviewed- SR with PACs, RBBB no change from prior study Marlys Jacques ordered Will need to be upgraded to ICU for Severe Sepsis Microblogged ICU resident for consult d/w Dr Karin Grullon, ICU resident who accepted the transfer Critical Care Total Critical Care Time (in minutes): 45 Critical Care Statement: The care of this patient involved high complexity decision making to prevent further life threatening deterioration of the patient's condition and/or to evaluate & treat vital organ system(s) failure or risk of failure.
[2019-11-17] MEDS ORDERED: SODIUM CHLORIDE 500 ML IV STA ×3 (00:27→07:35)
--- NOTE | 2019-11-17 00:29 | CONSULT ---
Consultation: REQUESTING PROVIDER: CONSULT REQUEST: We have been asked to medically evaluate this patient for inability to obtain BP readings. HISTORY OF PRESENT ILLNESS: 74yo M from [facility] with PMHx of Chronic Respiratory Failure (Trach - vent dep), Myasthenia Gravis, HLD, DM, GERD, Pneumonia, Chronic lower extremity edema, anasarca, recent admission for Septicemia ([facility] d/c 11/09), cecostomy, urostomy. Patient was admitted for PEG tube placement and ICU was consulted due to difficulties finding vital signs. The last recorded BP was 129/112 at 14:20, I was able to get a BP with the portable BP monitor - 54/42 (44) and HR 78. Patient endorsed pain with head nodding, endorsed mild abdominal pain on palpation, and endorse sensation when being touched. When asked if there is anyone to contact, he vigorously indicated "no" with head nodding. He was also trying to say something by mouth and with his R arm but I was unable to understand him. Patient was indicating much discomfort surrounding is trach as he was always trying to reach for that area while grimacing. He tried to commun icate with mouth and arms but would drop his arms and and his eyes would roll up due to fatigue. He repeated this several times. Per nurse he is Dr. Wolff's patient. Contacted next of kin [id number] at [phone] and discussed some details of the patient's current condition and the need of conversation for goals of care. We said someone from the team will call him this afternoon, palliative has been consulted. REVIEW OF SYSTEMS: as above PHYSICAL EXAMINATION Vital Signs - 24 hr 11/16/19 11/16/19 11/16/19 00:25 04:15 04:55 Pulse Rate Pulse Rate [ Radial] Respiratory 25 H 19 25 H Rate Blood Pressure Blood Pressure [Left Arm] O2 Sat by Pulse 96 Oximetry (%) 11/16/19 11/16/19 11/16/19 06:40 07:28 09:00 Pulse Rate Pulse Rate [ 62 Radial] Respiratory 21 H 23 H Rate Blood Pressure Blood Pressure 83/23 L 91/43 L [Left Arm] O2 Sat by Pulse 95 Oximetry (%) 11/16/19 11/16/19 11/16/19 12:22 14:20 15:38 Pulse Rate 67 Pulse Rate [ Radial] Respiratory 23 H 24 H 21 H Rate Blood Pressure 129/112 H Blood Pressure [Left Arm] O2 Sat by Pulse 91 L 91 L Oximetry (%) 11/16/19 11/16/19 20:15 23:45 Pulse Rate 78 Pulse Rate [ Radial] Respiratory 18 Rate Blood Pressure 54/42 L Blood Pressure [Left Arm] O2 Sat by Pulse Oximetry (%) GENERAL: somnolent but arousable, pronounced generalized pallor, seemed fully oriented but unable to fully assess, appeared in mild acute distress HEAD: no signs of trauma, temporal wasting, sunken eye sockets, pronounced pallor, poor dentition EYES: intermittent oculgyric crisis, intermittently able to move eyes towards me NECK: tracheostomy with surrounding erythema LUNGS: Breath sounds equal on ventilator, no crackles appreciated HEART: no heart sounds audible ABDOMEN: no bowel sounds, cecostomy and urostomy in place, sever erythema and erythematous macules and some scaling in pubic area UPPER EXTREMITIES: 3+ edema from axillary level down to hands, pallor, no pulses palpable LOWER EXTREMITIES: upper part of legs cachectic and pale, L upper leg with skin graft scars with overlying erythema and brown/gold crusting, severe pedal edema 4+ PSYCHIATRIC: desire to be cooperative but limited due to weakness, poor eye contact SKIN: warm, generalized pallor, sever erythema and erythematous macules and some scaling in pubic and inguinal areas, skin graft scars on L upper leg with overlying erythema and brown/gold crusting Laboratory Results - last 24 hr 11/16/19 11/16/19 11/16/19 02:00 03:20 10:25 WBC RBC Hgb Hct MCV MCH MCHC RDW Plt Count MPV Absolute Neuts (auto) Neutrophils % Neutrophils % (Manual) Band Neutrophils % Lymphocytes % Lymphocytes % (Manual) Monocytes % Monocytes % (Manual) Eosinophils % Eosinophils % (Manual) Basophils % Basophils % (Manual) Myelocytes % (Man) Promyelocytes % (Man) Blast Cells % (Manual) Nucleated RBC % Metamyelocytes Hypochromia Platelet Estimate Polychromasia Poikilocytosis Anisocytosis Microcytosis Macrocytosis Ovalocytes D-Dimer Sodium 136 Potassium 4.4 Chloride 108 H Carbon Dioxide 18 L Anion Gap 10 BUN 38.2 H Creatinine 0.6 Est GFR (CKD-EPI)AfAm 116.42 Est GFR (CKD-EPI)NonAf 100.45 Random Glucose 126 H Lactic Acid 2.1 H Calcium 7.2 L Magnesium 1.8 Total Bilirubin 0.2 AST 22 ALT < 6 L Alkaline Phosphatase 392 H LD Total 282 H C-Reactive Protein 11.7 H Total Protein 4.0 L Albumin 0.7 L Urine Color Yellow Urine Appearance Turbid Urine pH 5.0 Ur Specific [place] 1.024 Urine Protein 2+ H Urine Glucose (UA) Negative Urine Ketones Trace H Urine Blood 3+ H Urine Nitrite Negative Urine Bilirubin Negative Urine Urobilinogen 0.2 Ur Leukocyte Esterase 3+ H Urine WBC (Auto) 8166 Urine RBC (Auto) 805.3 Urine Casts (Auto) 23 U Pathogenic Cast Auto None seen U Epithel Cells (Auto) 12 Urine Bacteria (Auto) 209 Urine Yeast (Auto) Many Random Vancomycin 11/16/19 11/16/19 11/16/19 10:25 10:25 10:25 WBC 14.3 H RBC 2.89 L Hgb 8.2 L Hct 26.0 L MCV 89.8 MCH 28.3 MCHC 31.6 L RDW 24.5 H Plt Count 323 MPV 6.7 L Absolute Neuts (auto) 13.1 H Neutrophils % 91.5 H D Neutrophils % (Manual) 96.0 H Band Neutrophils % 1.0 Lymphocytes % 4.3 L D Lymphocytes % (Manual) 1.0 L Monocytes % 4.1 Monocytes % (Manual) 2 L Eosinophils % 0.0 D Eosinophils % (Manual) 0.0 Basophils % 0.1 Basophils % (Manual) 0.0 Myelocytes % (Man) 0 Promyelocytes % (Man) 0 Blast Cells % (Manual) 0 Nucleated RBC % 0 Metamyelocytes 0 Hypochromia 1+ Platelet Estimate Normal Polychromasia 1+ Poikilocytosis 0 Anisocytosis 2+ Microcytosis 1+ Macrocytosis 1+ Ovalocytes 1+ D-Dimer 1097 H Sodium Potassium Chloride Carbon Dioxide Anion Gap BUN Creatinine Est GFR (CKD-EPI)AfAm Est GFR (CKD-EPI)NonAf Random Glucose Lactic Acid Calcium Magnesium Total Bilirubin AST ALT Alkaline Phosphatase LD Total C-Reactive Protein Total Protein Albumin Urine Color Urine Appearance Urine pH Ur Specific [place] Urine Protein Urine Glucose (UA) Urine Ketones Urine Blood Urine Nitrite Urine Bilirubin Urine Urobilinogen Ur Leukocyte Esterase Urine WBC (Auto) Urine RBC (Auto) Urine Casts (Auto) U Pathogenic Cast Auto U Epithel Cells (Auto) Urine Bacteria (Auto) Urine Yeast (Auto) Random Vancomycin < 0.8 L Active Medications Generic Name Dose Route Start Last Admin Trade Name Freq PRN Reason Stop Dose Admin Acetaminophen 1,000 mg 11/16/19 18:44 11/16/19 20:57 Ofirmev Injection - IVPB 11/17/19 18:44 1,000 mg Q6H PRN Administration PAIN 1-10 Albuterol Sulfate 2 puff 11/16/19 20:00 11/16/19 21:24 Ventolin Hfa Inhaler - IH Not Given RTID THEODORE Collagenase 1 applic 11/17/19 10:00 Santyl - TP DAILY THEODORE Protocol Enoxaparin Sodium 40 mg 11/16/19 10:30 11/16/19 11:18 Lovenox - SQ 40 mg DAILY THEODORE Administration Furosemide 40 mg 11/17/19 06:00 Lasix Injection - IVPUSH BIDLASIX THEODORE Famotidine/Sodium Chloride 20 mg in 50 mls @ 100 mls/hr 11/16/19 10:30 11/16/19 22:24 Pepcid 20 Mg Premixed Ivpb - IVPB 100 mls/hr BID THEODORE Administration Cefepime HCl 1 gm/ Dextrose 100 mls @ 200 mls/hr 11/16/19 12:15 11/16/19 19:56 IVPB 200 mls/hr Q8H-IV THEODORE Administration Protocol Vancomycin HCl 1,000 mg in 250 mls @ 250 mls/hr 11/16/19 16:00 11/16/19 17:44 Vancomycin (Pre-Docked) IVPB 250 mls/hr Q12H THEODORE Administration Protocol Dextrose/Sodium Chloride 20 meq in 1,000 mls @ 30 mls/hr 11/16/19 18:06 11/16/19 19:54 Dextrose 5%-Normal Saline+20 Meq Kcl - IV 30 mls/hr ASDIR THEODORE Administration Ondansetron HCl 4 mg 11/16/19 10:20 11/16/19 11:18 Zofran Injection IVPUSH 4 mg Q6H PRN Administration NAUSEA AND/OR VOMITING Pneumococcal 13-Valent Conj Vacc 0.5 ml 11/16/19 20:13 Prevnar 13 Syringe - IM 11/16/19 20:14 .ONCE ONE ASSESSMENT/PLAN: 74yo M from [facility] with PMHx of Chronic Respiratory Failure (Trach - vent dep), Myasthenia Gravis, HLD, DM, GERD, Pneumonia, Chronic lower extremity edema, anasarca, recent admission for Septicemia ([facility] d/c 11/09), cecostomy, urostomy admitted for PEG tube placement and ICU consulted due to difficulties finding vital sings. BP was measured to be 54/42 (44), and sublingual temp was 92 F. Patient admitted to the ICU for sepsis. #Neuro Myasthenia Gravis - stable #Pulm Chronic respiratory failure - patient has chronic tracheostomy - may need skin care for surrounding erythema (seems to be causing patient discomfort) - ventilator dependent - current settings 16/500/50/5 satting 91% -- continue ventilatory support - CXR 11/15/19: pleural fluid and atelectasis at the bases, apical pleural thickening - Ventolin - Pulmonary consulted - Aspiration precautions, Continuous bed rest #Cardio no acute issues would be beneficial to obtain records from [facility] #Renal Edema and Anasarca - in setting of hypoalbuminemia, patient received 500cc NS on floor and another 500cc in the ICU - albumin 0.7 #Endo DM - ISS, BGM, ACHS #Heme Anemia - continue monitoring CBC - tranfusion indicated RBCs < 7 - Iron, B12, TSH, FOBT #ID Septic shock (Hypotension/Hypothermia, Leukocytosis)--Possible Urinary source VS Sacral ulcer - Given 1L IV Bolus - start levophed to maintain MAP > 65; added on vasopressin and phenylephrine - stress dose steroids: fludrocortisone, hydrocortisone - Check Blood Cx, UA, CXR, Wound Cx, LActic acid - Covid Pending - continue cefepime and vancomycin - Tylenol PRN for fevers - Continue kely avery - ID consulted, appreciate rec's - Hold Lasix until MAPS improve to > 65 - plastic surgery consulted - appreciate rec's #GI/ for PEG Tube placement - IR has been consulted for PEG tube placement to optimize nutritional status - rec's appreciated GERD s/p Cecostomy and Urostomy - continue care of ostomies - continue ondansetron and famotidine - Monitor I&O's - IR Consulted #FEN - D5 NS 30cc/h - replete lytes PRN - NPO #PPX - DVT: enoxaparin - GI: Pepcid FULL CODE next of kin has been contacted, will be having further discussion in regards to goals of care. Palliative care has been consulted. Dispo: continue ICU monitoring Visit type - Medication Review Med list reviewed for High Risk Meds patients 65 and older: Yes - Emergency Visit Emergency Visit: Yes ED Registration Date: 11/15/19 Care time: The patient presented to the Emergency Department on the above date and was hospitalized for further evaluation of their emergent condition. - New Patient This patient is new to me today: No - Critical Care Critical Care patient: Yes Total Critical Care Time (in minutes): 37 Critical Care Statement: The care of this patient involved high complexity decision making to prevent further life threatening deterioration of the patient's condition and/or to evaluate & treat vital organ system(s) failure or risk of failure. ATTENDING PHYSICIAN STATEMENT I saw and evaluated the patient. I reviewed the resident's note and discussed the case with the resident. I agree with the resident's findings and plan as documented. SUBJECTIVE: OBJECTIVE: ASSESSMENT AND PLAN:
[2019-11-17] MEDS ORDERED: FUROSEMIDE 40 MG/4 ML INJECTABLE VIAL ONE (03:11)
[2019-11-17] MEDS ORDERED: DEXTROSE 5%-WATER 100 ML IVPB ONE ×4 (03:12→22:24)
[2019-11-17] MEDS ORDERED: CEFEPIME HCL 1 GM VIAL (RESTRICTED TO ID) ONE ×4 (03:12→22:24)
[2019-11-17] MEDS: CEFEPIME 1 GM in DEXTROSE 5%-WATER 100 ML IVPB SCH ×3 (03:16→17:24)
[2019-11-17] MEDS: NOREPINEPHRINE BITARTRATE 16,000 MCG in SODIUM CHLORIDE 484 ML IV SCH ×2 (03:16→13:15)
[2019-11-17 03:21] LABS: INR 2.23 (0.83-1.09); PROTHROMBIN TIME (PATIENT) 26.5 SEC (9.7-13.0)
[2019-11-17 03:24] LABS: ACTIVATED PTT 66.1 SECONDS (25.2-36.5)
[2019-11-17 03:32] LABS: ALBUMIN 0.7 g/dl (3.4-5.0); ANION GAP 11 MMOL/L (8-16); BLOOD UREA NITROGEN 37.2 mg/dL (7-18); CHLORIDE 104 mmol/L (98-107); CO2 18 mmol/L (21-32); CREATININE 0.9 mg/dL (0.55-1.3); GLUCOSE,RANDOM 243 mg/dL (74-106); MAGNESIUM 1.6 mg/dL (1.8-2.4); PHOSPHOROUS 4.6 mg/dL (2.5-4.9); POTASSIUM 4.1 mmol/L (3.5-5.1); SGOT/AST 22 U/L (15-37); SGPT/ALT < 6 U/L (13-61); SODIUM 132 mmol/L (136-145)
[2019-11-17 03:35] LABS: ALK PHOS 369 U/L (45-117); BILIRUBIN,TOTAL 0.2 mg/dL (0.2-1); TOT PROT 3.8 g/dl (6.4-8.2)
[2019-11-17 03:39] LABS: CALCIUM 6.7 mg/dL (8.5-10.1)
[2019-11-17] MEDS ORDERED: MAGNESIUM SULF 50% (8.12 MEQ/2 ML-1 GM VIAL) IVPB ONE (03:39)
[2019-11-17] MEDS: VANCOMYCIN 1 GRAM (PRE-DOCKED) 1,000 MG/250 ML BAG IVPB SCH ×2 (03:44→17:26)
[2019-11-17] MEDS ORDERED: SODIUM CHLORIDE 1,000 ML IV STA (03:56)
[2019-11-17] MEDS: VASOPRESSIN 40 UNITS in SODIUM CHLORIDE 98 ML IVPB SCH ×3 (05:44→19:11)
[2019-11-17] MEDS ORDERED: FUROSEMIDE 40 MG/4 ML INJECTABLE VIAL IVPUSH SCH (06:00)
[2019-11-17] MEDS ORDERED: PHENYLEPHRINE HCL 10,000 MCG in DEXTROSE 5%-WATER - 499 ML IV SCH (06:45)
[2019-11-17] MEDS ORDERED: PHENYLEPHRINE HCL 50,000 MCG in DEXTROSE 5%-WATER - 495 ML IV SCH (06:45)
[2019-11-17 06:52] LABS: ARTERIAL BLOOD GAS BASE EXCESS -10.6 mmol/L (-2-2); ARTERIAL BLOOD GAS PO2 184.5 mmHg (80-100); ARTERIAL BLOOD GAS pH 7.241 (7.350-7.450)
[2019-11-17 06:53] LABS: ALLENS TEST POSITIVE
[2019-11-17 06:55] LABS: VENT MODE AC; VENT RATE 16
[2019-11-17 07:03] LABS: ALBUMIN 0.6 g/dl (3.4-5.0); ALK PHOS 356 U/L (45-117); ANION GAP 12 MMOL/L (8-16); BILIRUBIN,TOTAL 0.3 mg/dL (0.2-1); BLOOD UREA NITROGEN 34.6 mg/dL (7-18); CHLORIDE 101 mmol/L (98-107); CO2 17 mmol/L (21-32); CREATININE 0.9 mg/dL (0.55-1.3); GLUCOSE,RANDOM 384 mg/dL (74-106); MAGNESIUM 1.8 mg/dL (1.8-2.4); PHOSPHOROUS 4.4 mg/dL (2.5-4.9); POTASSIUM 3.9 mmol/L (3.5-5.1); SGOT/AST 22 U/L (15-37); SGPT/ALT < 6 U/L (13-61); SODIUM 130 mmol/L (136-145); TOT PROT 3.7 g/dl (6.4-8.2)
[2019-11-17 07:10] LABS: CALCIUM 6.2 mg/dL (8.5-10.1)
[2019-11-17] MEDS ORDERED: ALBUMIN HUMAN 25% 12.5 GM/50 ML VIAL IVPB SCH (08:45)
[2019-11-17] MEDS ORDERED: ACETAMINOPHEN 1000 MG/100 ML VIAL (NON FORMULARY) IVPB ONE (08:56)
--- NOTE | 2019-11-17 09:06 | PN ---
Progress Note, Physician - Current Medication List Current Medications: Active Medications Acetaminophen (Ofirmev Injection -) 1,000 mg IVPB Q6H PRN PRN Reason: PAIN 1-10 Stop: 11/17/19 18:44 Last Admin: 11/16/19 20:57 Dose: 1,000 mg Documented by: Acetaminophen (Ofirmev Injection -) 1,000 mg IVPB ONCE ONE Stop: 11/17/19 08:57 Albumin Human (Albumin Human 25%) 12.5 gm IVPB Q30M THEODORE Stop: 11/17/19 09:16 Albuterol Sulfate (Ventolin Hfa Inhaler -) 2 puff IH RTID THEODORE Last Admin: 11/16/19 21:24 Dose: Not Given Documented by: Collagenase (Santyl -) 1 applic TP DAILY THEODORE; Protocol Enoxaparin Sodium (Lovenox -) 40 mg SQ DAILY THEODORE Last Admin: 11/16/19 11:18 Dose: 40 mg Documented by: Fludrocortisone Acetate (Florinef -) 0.2 mg PO DAILY THEODORE Hydrocortisone Sodium Succinate (Solu-Cortef -) 100 mg IVPUSH Q8H-IV THEODORE Famotidine/Sodium Chloride (Pepcid 20 Mg Premixed Ivpb -) 20 mg in 50 mls @ 100 mls/hr IVPB BID THEODORE Last Admin: 11/16/19 22:24 Dose: 100 mls/hr Documented by: Cefepime HCl 1 gm/ Dextrose 100 mls @ 200 mls/hr IVPB Q8H-IV THEODORE; Protocol Last Admin: 11/17/19 03:16 Dose: 200 mls/hr Documented by: Vancomycin HCl (Vancomycin (Pre-Docked)) 1,000 mg in 250 mls @ 250 mls/hr IVPB Q12H THEODORE; Protocol Last Admin: 11/17/19 03:44 Dose: 250 mls/hr Documented by: Dextrose/Sodium Chloride (Dextrose 5%-Normal Saline+20 Meq Kcl -) 20 meq in 1,000 mls @ 30 mls/hr IV ASDIR THEODORE Last Admin: 11/16/19 19:54 Dose: 30 mls/hr Documented by: Norepinephrine Bitartrate 16, (000 mcg/ Sodium Chloride) 500 mls @ 9.375 mls/hr IV TITR THEODORE; Protocol Last Titration: 11/17/19 05:47 Dose: 30 mcg/min, 56.25 mls/hr Documented by: Vasopressin 40 units/ Sodium (Chloride) 100 mls @ 30 mls/hr IVPB TITR THEODORE; Protocol Last Titration: 11/17/19 06:12 Dose: 0.07 units/min, 10 mls/hr Documented by: Phenylephrine HCl 50,000 mcg/ (Sodium Chloride) 500 mls @ 60 mls/hr IV TITR THEODORE; Protocol Ondansetron HCl (Zofran Injection) 4 mg IVPUSH Q6H PRN PRN Reason: NAUSEA AND/OR VOMITING Last Admin: 11/16/19 11:18 Dose: 4 mg Documented by: Pneumococcal 13-Valent Conj Vacc (Prevnar 13 Syringe -) 0.5 ml IM .ONCE ONE Stop: 11/16/19 20:14 - Objective Vital Signs: Vital Signs Temperature 97.3 F L 11/16/19 00:00 Pulse Rate 83 11/17/19 06:12 Respiratory Rate 20 11/17/19 05:46 Blood Pressure 71/53 L 11/17/19 06:12 O2 Sat by Pulse Oximetry (%) 100 11/17/19 05:46 Cardiovascular: Yes: S1, S2 Respiratory: Yes: Regular, CTA Bilaterally Gastrointestinal: Yes: Normal Bowel Sounds, Soft Labs: CBC, BMP 11/17/19 03:33 11/17/19 06:00 INR, PTT INR 2.23 (0.83-1.09) H 11/17/19 02:30 Problem List - Problems (1) Chronic respiratory failure Assessment/Plan: -Pulmonary consult -[facility] vent Code(s): J96.10 - CHRONIC RESPIRATORY FAILURE, UNSP W HYPOXIA OR HYPERCAPNIA (2) Hypotension Assessment/Plan: -R/O Sepsis -Maybe component of intravascular depletion -Albumin 0.8 Give Albumin -ID consult -Continue Abx -Cultures pending Code(s): I95.9 - HYPOTENSION, UNSPECIFIED (3) Anemia Assessment/Plan: -Check Iron, B12, Thyroid profile -Check stool OB -Monitor trend -Transfuse only if Hg<7.0 to avoid fluid overload Code(s): D64.9 - ANEMIA, UNSPECIFIED (4) Diabetes mellitus Code(s): E11.9 - TYPE 2 DIABETES MELLITUS WITHOUT COMPLICATIONS (5) Generalized edema Code(s): R60.1 - GENERALIZED EDEMA (6) Myasthenia gravis Code(s): G70.00 - MYASTHENIA GRAVIS WITHOUT (ACUTE) EXACERBATION (7) Dysphagia Assessment/Plan: -Silent aspiration on MBS at NM -PEG placement -IR consult Code(s): R13.10 - DYSPHAGIA, UNSPECIFIED
[2019-11-17] MEDS ORDERED: MORPHINE SULFATE 2 MG/ML VIAL IVPUSH ONE (09:20)
[2019-11-17] MEDS ORDERED: COLLAGENASE CLOSTRIDIUM HIST. 30 GRAMS TUBE TP SCH (10:00)
[2019-11-17] MEDS: HYDROCORTISONE SOD SUCCINATE 100 MG/2 ML VIAL IVPUSH SCH ×2 (10:10→17:24)
[2019-11-17] MEDS: FLUDROCORTISONE ACETATE 0.1 MG TABLET (FP) PO SCH ×2 (10:13→11:01)
[2019-11-17] MEDS: ENOXAPARIN NA (PORCINE) 40 MG/0.4 ML DISP.SYRIN SQ SCH (10:13)
[2019-11-17] MEDS: FAMOTIDINE 20 MG/50 ML IVPB 20 MG/50 ML MG IVPB SCH ×2 (10:15→23:04)
[2019-11-17] MEDS ORDERED: PNEUMOC 13-VAL CONJ-DIP CRM/PF 0.5 ML DISP.SYRIN IM ONE (11:30)
--- NOTE | 2019-11-17 11:49 | PN ---
Teaching Attending Note Name of Resident: Caitlin Payne ATTENDING PHYSICIAN STATEMENT I saw and evaluated the patient. I reviewed the resident's note and discussed the case with the resident. I agree with the resident's findings and plan as documented. SUBJECTIVE: Pt seen and examined in the ICU. Vented, awake on levophed, vasopressin, ph enylephrine gtt. OBJECTIVE: Vital Signs Period Temp Pulse Resp BP Sys/Kidd Pulse Ox Last 24 Hr 97.6 F 64-108 13-24 48-132/32-112 91-100 Intake & Output 11/14/19 11/15/19 11/16/19 11/17/19 23:59 23:59 23:59 23:59 Intake Total 250 2285 Output Total 0 Balance 250 2285 Weight 71.305 kg 71.214 kg Gen: vented, awake Heart: RRR Lung: scattered rhonchi Abd: soft, nontender Ext: + edema CBC, BMP 11/17/19 03:33 11/17/19 06:00 Active Medications Acetaminophen (Ofirmev Injection -) 1,000 mg IVPB Q6H PRN PRN Reason: PAIN 1-10 Stop: 11/17/19 18:44 Last Admin: 11/16/19 20:57 Dose: 1,000 mg Documented by: Albumin Human (Albumin Human 25%) 25 gm IVPB TID THEODORE Stop: 11/17/19 22:01 Albuterol Sulfate (Ventolin Hfa Inhaler -) 2 puff IH RTID THEODORE Last Admin: 11/16/19 21:24 Dose: Not Given Documented by: Collagenase (Santyl -) 1 applic TP DAILY [facility]; Protocol Enoxaparin Sodium (Lovenox -) 40 mg SQ DAILY THEODORE Last Admin: 11/17/19 10:13 Dose: 40 mg Documented by: Fludrocortisone Acetate (Florinef -) 0.2 mg PO DAILY THEODORE Last Admin: 11/17/19 11:01 Dose: 0.2 mg Documented by: Hydrocortisone Sodium Succinate (Solu-Cortef -) 100 mg IVPUSH Q8H-IV THEODORE Last Admin: 11/17/19 10:10 Dose: 100 mg Documented by: Famotidine/Sodium Chloride (Pepcid 20 Mg Premixed Ivpb -) 20 mg in 50 mls @ 100 mls/hr IVPB BID THEODORE Last Admin: 11/17/19 10:15 Dose: 100 mls/hr Documented by: Cefepime HCl 1 gm/ Dextrose 100 mls @ 200 mls/hr IVPB Q8H-IV THEODORE; Protocol Last Admin: 11/17/19 10:24 Dose: 200 mls/hr Documented by: Vancomycin HCl (Vancomycin (Pre-Docked)) 1,000 mg in 250 mls @ 250 mls/hr IVPB Q12H THEODORE; Protocol Last Admin: 11/17/19 03:44 Dose: 250 mls/hr Documented by: Dextrose/Sodium Chloride (Dextrose 5%-Normal Saline+20 Meq Kcl -) 20 meq in 1,000 mls @ 30 mls/hr IV ASDIR THEODORE Last Admin: 11/16/19 19:54 Dose: 30 mls/hr Documented by: Norepinephrine Bitartrate 16, (000 mcg/ Sodium Chloride) 500 mls @ 9.375 mls/hr IV TITR THEODORE; Protocol Last Titration: 11/17/19 05:47 Dose: 30 mcg/min, 56.25 mls/hr Documented by: Vasopressin 40 units/ Sodium (Chloride) 100 mls @ 30 mls/hr IVPB TITR THEODORE; Pro tocol Last Admin: 11/17/19 11:41 Dose: 0.1 units/min, 15 mls/hr Documented by: Phenylephrine HCl 50,000 mcg/ (Sodium Chloride) 500 mls @ 60 mls/hr IV TITR THEODORE; Protocol Ondansetron HCl (Zofran Injection) 4 mg IVPUSH Q6H PRN PRN Reason: NAUSEA AND/OR VOMITING Last Admin: 11/16/19 11:18 Dose: 4 mg Documented by: ASSESSMENT AND PLAN: Acute on Chronic Hypoxic Respiratory Failure UTI Pneumonia Sacral Decubitus Ulcer Septic Shock Lactic Acidosis Hyponatremia Myasthenia Gravis Hyperlipidemia DM GERD - continue antibiotics - f/u cultures - IVF - titrate pressors to maintain MAP >65 - stress dose steroids - trend lactate - monitor urine output, creatinine - titrate FiO2, PEEP to keep Spo2 >90% - wound care - DVT/GI prophylaxis - continue ICU monitoring - prognosis guarded critical care time spent in reviewing chart, evaluating patient and formulating plan 35 min
--- NOTE | 2019-11-17 12:01 | CONSULT ---
Admitting History and Physical - Admission History of Present Illness: Per EMR- 74 yo male presenting to ED with pmh of chronic resp failure, Sepsis, Cdif, and myasthenia gravis sent from [facility] om 11/14 for G Tube placement referred by Dr. Holder. Per [facility] nurse pt had a spit and swallow test 2-3 days ago and s tates that he was silently swallowing his food and medications. Since then he has been NPO. Pt was recently discharged from [facility] on 11/09 due to hypotension. He was diagnosed with septicemia and right sided pic line and suprapubic catheter were placed. He was also started on Cefazolin and Vancomycin. Per [facility] nurse pt also had bilateral ext swelling starting since he was discharged from [facility]. Limited information in chart regarding reason for chronic resp failure, hx of communication/swallowing/mentation before our admission. ID CONSULT DICTATED WASTING SYNDROME ASPIRATION PNEUMONIA V. HCAP CHRONIC RESP FAILURE ? SACRAL OSTEOMYELITIS HX C DIFFICILE COLITIS PCN ALLERGY Patient has large unstageable pressure injury to bilateral buttocks/sacrum Asked by Palliative care to assess communication for ability to determine/communicate pt's wishes History Source: Medical Record Limitations to Obtaining History: Clinical Condition - Past Medical History Cardiovascular: Yes: Hyperlipdemia Pulmonary: Yes: O2 Dependent, Pneumonia (VAP), Other (Chronic Respiratory Failure) Gastrointestinal: Yes: GERD Endocrine: Yes: Diabetes Mellitus Additional Past Medical History: Myasthenia Gravis - Past Surgical History Past Surgical History: Yes: Colostomy Additional Past Surgical History: Tracheostomy Suprapubic Catheter - Smoking History Smoking history: Never smoked - Alcohol/Substance Use Hx Alcohol Use: No (Unknown) History of Substance Use: reports: None (Unknown) - Social History ADL: Support Services History of Recent Travel: No History - Admission Reason For Visit: UNABLE TO EAT - Diagnostics X-ray: Report Reviewed - General Mental Status: Awake and Alert, Able to Follow Commands (simple), Intermittently Confused (suspected. Inconsistent,unreliable yes/no responses), Flat Affect Attention: Distractible, Mild Impairment Ability to Follow Directions: Fair Head/Neck Control: Needs Assist - Hearing Hearing: Normal Speech Evaluation - Communication Oral Expression Ability: Yes: Non-Vocal (on ventilator. Attempts to mouth words. Difficult to lip read. Inconsistent,unreliable yes/no responses) - Speech Production Intelligibility: Yes: Moderately Impaired, Severely Impaired - Speech Characteristics Articulation: Yes: Imprecise Rate of Speech: Too Fast - Language/Auditory Comprehension Follows: Yes: 1 Stage Simple Commands (simple) Observation: Yes/No Confusion: Yes (inconsistent/unreliable), Comprehends Conversational Speech: Yes (simple) - Swallow Evaluation/Bedside Assessment Current Nutritional Intake: NPO Dentition: Yes: Missing Teeth Jaw Position: Open at Rest Against Resistance Opening: Weak Against Resistance Closing: Weak Pucker Lips: Reduced ROM Smile: Reduced ROM Lingual Movement: Reduced Tip Depression, Reduced Tip Elevation, Reduced Protrusion Lingual Speed of Movement: Reduced Lingual Movement Strgth Against Opposition: Reduced Recommendations - Speech Evaluation, Impression/Plan Impression: On ventilator. Attempts to mouth words. Difficult to lip read. Inconsistent,unreliable yes/no responses. Patient has large unstageable pressure injury to bilateral buttocks/sacrum. NPO since 11/11. Needs nutrition and medication. Palliative care consulted to determine pt's end of life wishes. NGT/PEG?Now full code. Eyes remain open but continuously/rhythmically rolled up bilaterally. - Dysphagia Impressions/Plan Dysphagia Impressions: Risk of Aspiration, Ongoing Evaluation *Silent aspiration: cannot be R/O at bedside Recommendations: Other (If pt wishes, will need tube feeding to support wound healing.PMV/ MBS, if pt becomes stronger, in future to determine PO tolerance for meals/pleasure feedings NGT for medication?) - Recommendations Diet Consistency: NPO Liquids: NPO
[2019-11-17] MEDS: PHENYLEPHRINE HCL 50,000 MCG in SODIUM CHLORIDE 495 ML IV SCH ×2 (12:48→18:00)
[2019-11-17] MEDS: ALBUMIN HUMAN 25% 12.5 GM/50 ML VIAL IVPB SCH ×2 (13:04→23:03)
--- NOTE | 2019-11-17 14:18 | PN ---
Progress Note, Physician History of Present Illness: AWAKE CHRONICALLY ILL APPEARING PALE HYPOTHERMIC HYPOTENSIVE ON PRESSORS CULTURES PENDING TOLERATING CEPHALOSPORIN - Current Medication List Current Medications: Active Medications Acetaminophen (Ofirmev Injection -) 1,000 mg IVPB Q6H PRN PRN Reason: PAIN 1-10 Stop: 11/17/19 18:44 Last Admin: 11/16/19 20:57 Dose: 1,000 mg Documented by: Albumin Human (Albumin Human 25%) 25 gm IVPB TID THEODORE Stop: 11/17/19 22:01 Last Admin: 11/17/19 13:04 Dose: 25 gm Documented by: Albuterol Sulfate (Ventolin Hfa Inhaler -) 2 puff IH RTID THEODORE Last Admin: 11/16/19 21:24 Dose: Not Given Documented by: Collagenase (Santyl -) 1 applic TP DAILY [facility]; Protocol Enoxaparin Sodium (Lovenox -) 40 mg SQ DAILY THEODORE Last Admin: 11/17/19 10:13 Dose: 40 mg Documented by: Fludrocortisone Acetate (Florinef -) 0.2 mg PO DAILY THEODORE Last Admin: 11/17/19 11:01 Dose: 0.2 mg Documented by: Hydrocortisone Sodium Succinate (Solu-Cortef -) 100 mg IVPUSH Q8H-IV THEODORE Last Admin: 11/17/19 10:10 Dose: 100 mg Documented by: Famotidine/Sodium Chloride (Pepcid 20 Mg Premixed Ivpb -) 20 mg in 50 mls @ 100 mls/hr IVPB BID THEODORE Last Admin: 11/17/19 10:15 Dose: 100 mls/hr Documented by: Cefepime HCl 1 gm/ Dextrose 100 mls @ 200 mls/hr IVPB Q8H-IV THEODORE; Protocol Last Admin: 11/17/19 10:24 Dose: 200 mls/hr Documented by: Vancomycin HCl (Vancomycin (Pre-Docked)) 1,000 mg in 250 mls @ 250 mls/hr IVPB Q12H THEODORE; Protocol Last Admin: 11/17/19 03:44 Dose: 250 mls/hr Documented by: Dextrose/Sodium Chloride (Dextrose 5%-Normal Saline+20 Meq Kcl -) 20 meq in 1,000 mls @ 30 mls/hr IV ASDIR THEODORE Last Admin: 11/16/19 19:54 Dose: 30 mls/hr Documented by: Norepinephrine Bitartrate 16, (000 mcg/ Sodium Chloride) 500 mls @ 9.375 mls/hr IV TITR THEODORE; Protocol Last Admin: 11/17/19 13:15 Dose: 30 mcg/min, 56.25 mls/hr Documented by: Vasopressin 40 units/ Sodium (Chloride) 100 mls @ 30 mls/hr IVPB TITR THEODORE; Protocol Last Admin: 11/17/19 11:41 Dose: 0.1 units/min, 15 mls/hr Documented by: Phenylephrine HCl 50,000 mcg/ (Sodium Chloride) 500 mls @ 60 mls/hr IV TITR THEODORE; Protocol Last Admin: 11/17/19 12:48 Dose: Not Given Documented by: Ondansetron HCl (Zofran Injection) 4 mg IVPUSH Q6H PRN PRN Reason: NAUSEA AND/OR VOMITING Last Admin: 11/16/19 11:18 Dose: 4 mg Documented by: - Objective Vital Signs: Vital Signs Temperature 95.0 F L 11/17/19 12:00 Pulse Rate 78 11/17/19 14:00 Respiratory Rate 18 11/17/19 14:00 Blood Pressure 94/38 L 11/17/19 14:00 O2 Sat by Pulse Oximetry (%) 100 11/17/19 05:46 Constitutional: Yes: No Distress, Pallor Eyes: Yes: Conjunctiva Clear Cardiovascular: Yes: Regular Rate and Rhythm, S1, S2 Respiratory: Yes: Diminished Gastrointestinal: Yes: Soft, Other (+ OSTOMY + SUPRAPUBIC TUBE) Extremities: Yes: Other (+ PICC R UE) Edema: LUE: 3+, RUE: 3+, LLE: 3+, RLE: 3+ Labs: CBC, BMP 11/17/19 03:33 11/17/19 06:00 INR, PTT INR 2.23 (0.83-1.09) H 11/17/19 02:30 Assessment/Plan SEPSIS/ SEPTIC SHOCK HYPOTHERMIA/ HYPOTENSION WASTING SYNDROME CHRONIC RESP FAILURE PNEUMONIA UTI / R/O SEPSIS SECONDARY TO UTI SACRAL DECUBITUS/ OSTEOMYELITIS BY HX LACTIC ACIDOSIS HX C DIFFICILE MYASTHENIA GRAVIS PCN ALLERGY COVID-19 (-) CONTINUE EMPIRIC VANCOMYCIN/ CEFEPIME AWAIT C/S CONTINUE VENTILATORY/ HEMODYNAMIC SUPPORT PROGNOSIS POOR CRITICAL CARE TIME 35MIN
[2019-11-17] MEDS ORDERED: PT OWN MED DRAWER 7, Y5N ONE ×3 (14:52→17:00)
--- NOTE | 2019-11-17 16:37 | PN ---
Physical Exam: SUBJECTIVE: Patient seen and examined. He is able to communicate by nodding and mouthing words. OBJECTIVE: Vital Signs Period Temp Pulse Resp BP Sys/Kidd Pulse Ox Last 24 Hr 95.0 F-97.6 F 64-108 13-22 48-132/32-111 100-100 PM exam GENERAL: The patient is awake, alert, not appearing in distress. HEAD: Normal with no signs of trauma. EYES: PERRL, extraocular movements intact, brownish color covering sclera on both sides of both irises following the shape of the eye lid, with few small red vessels branching off. ENT: Ears normal, nares patent, moist mucous membranes. NECK: Trachea midline, full range of motion, tracheostomy on ventilator. LUNGS: Clear to auscultation bilaterally, no wheezes, no crackles. HEART: Regular rate and rhythm, no murmur appreciated. ABDOMEN: Soft, nontender, nondistended, normoactive bowel sounds. BACK: Multiple stages, mostly stage 4, 20cm x 20cm sacral ulcer with granulation in areas, no drainage or foul smell EXTREMITIES: Warm, well-perfused, +1 pitting edema all 4 extremities. NEUROLOGICAL: Cranial nerves II through XII grossly intact. PSYCH: Normal mood, normal affect. SKIN: Warm, dry, normal turgor. Laboratory Results - last 24 hr 11/15/19 11/17/19 11/17/19 Unknown 02:30 02:30 WBC Cancelled Corrected WBC (auto) Cancelled RBC Cancelled Hgb Cancelled Hct Cancelled MCV Cancelled MCH Cancelled MCHC Cancelled RDW Cancelled Plt Count Cancelled MPV Cancelled Absolute Neuts (auto) Cancelled Absolute Lymphs (auto) Absolute Monos (auto) Absolute Eos (auto) Absolute Basos (auto) Add Manual Diff Neutrophils % Cancelled Lymphocytes % Cancelled Monocytes % Cancelled Eosinophils % Cancelled Basophils % Cancelled Nucleated RBC % Cancelled Platelet Estimate Cancelled Platelet Comment Cancelled Normal RBC Morphology PT with INR INR PTT (Actin FS) Anticoagulation Therapy Puncture Site Patient Temperature ABG pH ABG pCO2 ABG pO2 ABG HCO3 ABG O2 Sat (Measured) ABG O2 Content ABG Base Excess Raheem Test Patient On Oxygen O2 Delivery Device Oxygen Flow Rate Vent Mode Vent Rate Mechanical Rate PEEP Pressure Support Vent Sodium 132 L Potassium 4.1 Chloride 104 Carbon Dioxide 18 L Anion Gap 11 BUN 37.2 H Creatinine 0.9 Est GFR (CKD-EPI)AfAm 98.55 Est GFR (CKD-EPI)NonAf 85.03 Random Glucose 243 H Lactic Acid Calcium 6.7 L* Phosphorus 4.6 Magnesium 1.6 L Total Bilirubin 0.2 AST 22 ALT < 6 L Alkaline Phosphatase 369 H Total Protein 3.8 L Albumin 0.7 L COVID-19 (MARY) Not detected 11/17/19 11/17/19 11/17/19 02:30 02:30 03:33 WBC Cancelled Corrected WBC (auto) Cancelled RBC Cancelled Hgb Cancelled Hct Cancelled MCV Cancelled MCH Cancelled MCHC Cancelled RDW Cancelled Plt Count Cancelled MPV Cancelled Absolute Neuts (auto) Cancelled Absolute Lymphs (auto) Cancelled Absolute Monos (auto) Cancelled Absolute Eos (auto) Cancelled Absolute Basos (auto) Cancelled Add Manual Diff Cancelled Neutrophils % Cancelled Lymphocytes % Cancelled Monocytes % Cancelled Eosinophils % Cancelled Basophils % Cancelled Nucleated RBC % Cancelled Platelet Estimate Cancelled Platelet Comment Cancelled Normal RBC Morphology Cancelled PT with INR 26.50 H INR 2.23 H PTT (Actin FS) 66.1 H Anticoagulation Therapy Puncture Site Patient Temperature ABG pH ABG pCO2 ABG pO2 ABG HCO3 ABG O2 Sat (Measured) ABG O2 Content ABG Base Excess Raheem Test Patient On Oxygen O2 Delivery Device Oxygen Flow Rate Vent Mode Vent Rate Mechanical Rate PEEP Pressure Support Vent Sodium Potassium Chloride Carbon Dioxide Anion Gap BUN Creatinine Est GFR (CKD-EPI)AfAm Est GFR (CKD-EPI)NonAf Random Glucose Lactic Acid 2.7 H* Calcium Phosphorus Magnesium Total Bilirubin AST ALT Alkaline Phosphatase Total Protein Albumin COVID-19 (MARY) 11/17/19 11/17/19 11/17/19 06:00 06:00 06:40 WBC Corrected WBC (auto) RBC Hgb Hct MCV MCH MCHC RDW Plt Count MPV Absolute Neuts (auto) Absolute Lymphs (auto) Absolute Monos (auto) Absolute Eos (auto) Absolute Basos (auto) Add Manual Diff Neutrophils % Lymphocytes % Monocytes % Eosinophils % Basophils % Nucleated RBC % Platelet Estimate Platelet Comment Normal RBC Morphology PT with INR INR PTT (Actin FS) Anticoagulation Therapy No Result Required. Puncture Site Left radial Patient Temperature No Result Required. ABG pH 7.241 L ABG pCO2 38.10 ABG pO2 184.5 H ABG HCO3 16.0 L ABG O2 Sat (Measured) 99.0 H ABG O2 Content No Result Required. ABG Base Excess -10.6 L Raheem Test Positive Patient On Oxygen Yes O2 Delivery Device Vent Oxygen Flow Rate 50% Vent Mode Ac Vent Rate 16 Mechanical Rate No Result Required. PEEP 5.0 Pressure Support Vent 500 Sodium 130 L Potassium 3.9 Chloride 101 Carbon Dioxide 17 L Anion Gap 12 BUN 34.6 H Creatinine 0.9 Est GFR (CKD-EPI)AfAm 98.55 Est GFR (CKD-EPI)NonAf 85.03 Random Glucose 384 H Lactic Acid 2.4 H* Calcium 6.2 L* Phosphorus 4.4 Magnesium 1.8 Total Bilirubin 0.3 AST 22 ALT < 6 L Alkaline Phosphatase 356 H Total Protein 3.7 L Albumin 0.6 L COVID-19 (MARY) 11/17/19 10:53 WBC Corrected WBC (auto) RBC Hgb Hct MCV MCH MCHC RDW Plt Count MPV Absolute Neuts (auto) Absolute Lymphs (auto) Absolute Monos (auto) Absolute Eos (auto) Absolute Basos (auto) Add Manual Diff Neutrophils % Lymphocytes % Monocytes % Eosinophils % Basophils % Nucleated RBC % Platelet Estimate Platelet Comment Normal RBC Morphology PT with INR INR PTT (Actin FS) Anticoagulation Therapy Puncture Site Patient Temperature ABG pH ABG pCO2 ABG pO2 ABG HCO3 ABG O2 Sat (Measured) ABG O2 Content ABG Base Excess Raheem Test Patient On Oxygen O2 Delivery Device Oxygen Flow Rate Vent Mode Vent Rate Mechanical Rate PEEP Pressure Support Vent Sodium Potassium Chloride Carbon Dioxide Anion Gap BUN Creatinine Est GFR (CKD-EPI)AfAm Est GFR (CKD-EPI)NonAf Random Glucose Lactic Acid 5.7 H* Calcium Phosphorus Magnesium Total Bilirubin AST ALT Alkaline Phosphatase Total Protein Albumin COVID-19 (MARY) Active Medications Generic Name Dose Route Start Last Admin Trade Name Freq PRN Reason Stop Dose Admin Acetaminophen 1,000 mg 11/16/19 18:44 11/16/19 20:57 Ofirmev Injection - IVPB 11/17/19 18:44 1,000 mg Q6H PRN Administration PAIN 1-10 Albumin Human 25 gm 11/17/19 14:00 11/17/19 13:04 Albumin Human 25% IVPB 11/17/19 22:01 25 gm TID THEODORE Administration Albuterol Sulfate 2 puff 11/16/19 20:00 11/16/19 21:24 Ventolin Hfa Inhaler - IH Not Given RTID THEODORE Collagenase 1 applic 11/17/19 10:00 Santyl - TP DAILY THEODORE Protocol Enoxaparin Sodium 40 mg 11/16/19 10:30 11/17/19 10:13 Lovenox - SQ 40 mg DAILY THEODORE Administration Fludrocortisone Acetate 0.2 mg 11/17/19 10:00 11/17/19 11:01 Florinef - PO 0.2 mg DAILY THEODORE Administration Hydrocortisone Sodium Succinate 100 mg 11/17/19 07:00 11/17/19 10:10 Solu-Cortef - IVPUSH 100 mg Q8H-IV THEODORE Administration Famotidine/Sodium Chloride 20 mg in 50 mls @ 100 mls/hr 11/16/19 10:30 11/17/19 10:15 Pepcid 20 Mg Premixed Ivpb - IVPB 100 mls/hr BID THEODORE Administration Cefepime HCl 1 gm/ Dextrose 100 mls @ 200 mls/hr 11/16/19 12:15 11/17/19 10:24 IVPB 200 mls/hr Q8H-IV THEODORE Administration Protocol Vancomycin HCl 1,000 mg in 250 mls @ 250 mls/hr 11/16/19 16:00 11/17/19 03:44 Vancomycin (Pre-Docked) IVPB 250 mls/hr Q12H THEODORE Administration Protocol Dextrose/Sodium Chloride 20 meq in 1,000 mls @ 30 mls/hr 11/16/19 18:06 11/16/19 19:54 Dextrose 5%-Normal Saline+20 Meq Kcl - IV 30 mls/hr ASDIR THEODORE Administration Norepinephrine Bitartrate 16, 500 mls @ 9.375 mls/hr 11/17/19 02:00 11/17/19 13:15 000 mcg/ Sodium Chloride IV 30 mcg/min TITR THEODORE 56.25 mls/hr Administration Protocol 5 MCG/MIN Vasopressin 40 units/ Sodium 100 mls @ 30 mls/hr 11/17/19 05:30 11/17/19 11:41 Chloride IVPB 0.1 units/min TITR THEODORE 15 mls/hr Administration Protocol 0.2 UNITS/MIN Phenylephrine HCl 50,000 mcg/ 500 mls @ 60 mls/hr 11/17/19 09:15 11/17/19 12:48 Sodium Chloride IV Not Given TITR THEODORE Protocol 100 MCG/MIN Ondansetron HCl 4 mg 11/16/19 10:20 11/16/19 11:18 Zofran Injection IVPUSH 4 mg Q6H PRN Administration NAUSEA AND/OR VOMITING ASSESSMENT/PLAN: 74yo M from [facility] with PMHx of Chronic Respiratory Failure (Trach - vent dep), Myasthenia Gravis, HLD, DM, GERD, Pneumonia, Chronic lower extremity edema, anasarca, recent admission for Septicemia ([facility] d/c 11/09), cecostomy, urostomy. Patient was admitted for PEG tube placement and was found to be in septic shock. #neuro -awake and alert but has become less reactive throughout the day #cardio -hypotensive likely 2/2 septic shock -vasopressin -levophed -phenylephrine -will add 4th agent if needed -fludrocortisone- as long as can tolerate PO med -hydrocortisone -hold Lasix -keep MAP >65 #pulm -trach and on ventilator 500/16/5/60 -albuterol QID -keep SpO2 >88 #renal -extremely little urine output despite liters of IV fluids, from shock -albumin #ID -leukocytosis -lactic acidosis, worsening -sacral ulcer -PCN allergy -started on cefepime -started on vancomycin -blood, urine, wound cultures pending -ID following #GI -IR consulted for PEG placement #heme/onc -FFP DVT Ppx Lovenox GI Ppx Pepcid FEN D5 NS w/ 20meq KCl monitor labs NPO dispo ICU arterial line 11/16 FULL CODE Palliative care consulted. Muna spoke with patient who wants to be full code. Next of kin is brother in law. Visit type - Emergency Visit Emergency Visit: Yes ED Registration Date: 11/15/19 Care time: The patient presented to the Emergency Department on the above date and was hospitalized for further evaluation of their emergent condition. - New Patient This patient is new to me today: Yes Date on this admission: 11/17/19 - Critical Care Critical Care patient: Yes Total Critical Care Time (in minutes): 45 Critical Care Statement: The care of this patient involved high complexity decision making to prevent further life threatening deterioration of the patient's condition and/or to evaluate & treat vital organ system(s) failure or risk of failure. - Medication Review Med list reviewed for High Risk Meds patients 65 and older: Yes ATTENDING PHYSICIAN STATEMENT I saw and evaluated the patient. I reviewed the resident's note and discussed the case with the resident. I agree with the resident's findings and plan as documented. SUBJECTIVE: OBJECTIVE: ASSESSMENT AND PLAN:
[2019-11-17] MEDS ORDERED: ARTIFICIAL TEARS (POLYVINYL ALCOHOL) OPTH DROPS OU PRN (16:47)
[2019-11-17 17:18] LABS: ARTERIAL BLD GAS O2 SATURATION 97.6 mmHg (95-98); ARTERIAL BLOOD GAS BASE EXCESS -22.1 mmol/L (-2-2); ARTERIAL BLOOD GAS PO2 140.4 mmHg (80-100)
[2019-11-17 17:20] LABS: ALLENS TEST POSITIVE
[2019-11-17 17:24] LABS: ARTERIAL BLOOD GAS pH 7.045 (7.350-7.450)
[2019-11-17 17:31] LABS: INR 3.21 (0.83-1.09); PROTHROMBIN TIME (PATIENT) 38.3 SEC (9.7-13.0)
[2019-11-17 17:33] LABS: ACTIVATED PTT 88.4 SECONDS (25.2-36.5)
[2019-11-17 17:47] LABS: ALBUMIN 1.4 g/dl (3.4-5.0); ALK PHOS 385 U/L (45-117); ANION GAP 19 MMOL/L (8-16); BILIRUBIN,TOTAL 0.4 mg/dL (0.2-1); BLOOD UREA NITROGEN 37.9 mg/dL (7-18); CHLORIDE 108 mmol/L (98-107); CO2 7 mmol/L (21-32); CREATININE 1.1 mg/dL (0.55-1.3); GLUCOSE,RANDOM 133 mg/dL (74-106); MAGNESIUM 2.1 mg/dL (1.8-2.4); PHOSPHOROUS 6.6 mg/dL (2.5-4.9); POTASSIUM 4.6 mmol/L (3.5-5.1); SGOT/AST 28 U/L (15-37); SODIUM 134 mmol/L (136-145); TOT PROT 4.2 g/dl (6.4-8.2)
[2019-11-17 17:48] LABS: SGPT/ALT < 6 U/L (13-61)
[2019-11-17] MEDS ORDERED: SODIUM BICARBONATE 8.4% - 75 MEQ in SODIUM CHLORIDE 0.45% 1,000 ML IV SCH (18:00)
[2019-11-17] MEDS: ALBUTEROL SO4 HFA INHALER IH SCH ×2 (18:02→21:03)
[2019-11-17] MEDS: OCULAR LUBRICANT OPHTHALMIC OINTMENT 7 GM TUBE OU SCH ×2 (18:07→23:04)
[2019-11-17 18:09] LABS: BASO % 0.1 % (0-2.0); EOS % 0.3 % (0-4.5); HEMATOCRIT 26.7 % (35.4-49); HEMOGLOBIN 7.8 GM/dL (11.7-16.9); LYMPH % 4.4 % (8-40); MCH 28.5 pg (25.7-33.7); MCHC 29.1 g/dl (32.0-35.9); MEAN CELL VOLUME 97.8 fl (80-96); MEAN PLT VOLUME 7.9 fl (7.5-11.1); MONO % 2.4 % (3.8-10.2); NEUT % 92.8 % (42.8-82.8); PLATELET COUNT 383 K/MM3 (134-434); RBC 2.73 M/mm3 (4.00-5.60); RDW 26.6 % (11.9-15.9)
[2019-11-17 18:18] LABS: ANISOCYTOSIS 3+; MACROCYTOSIS 2+
[2019-11-17 18:19] LABS: PLATELET ESTIMATE ADEQUATE
--- NOTE | 2019-11-17 18:44 | PROC ---
Procedure Note Procedure: PROCEDURE NOTE: Axillary arterial line placement under ultrasound guidance INDICATION: Unreliable NIBM with hemodynamic instability PROCEDURE ELECTRONIC TESTER: Salo Quispe M.D., PGY3 ATTENDING PHYSICIAN: Nick Doran M.D. CONSENT: The procedure emergent and performed with implied permission. PROCEDURE SUMMARY: A time out was performed. My hands were washed immediately prior to the procedure. I wore a mask with protective eyewear and sterile gloves throughout the procedure. The right axillary region was prepped using chlorhexidine scrub and draped in sterile fashion using a fenestrated drape. The axillary artery pulse was identified using dynamic ultrasound. Anesthesia was achieved using 1% lidocaine. The introducer needle was inserted into the axillary artery under direct ultrasound visualization. Arterial blood was withdrawn. The syringe was removed and a guidewire was advanced into the introducer needle. A small incision was made at the skin surface with a scalpel and the introducer needle was exchanged for the arterial line catheter over the guidewire. The wire was removed. The catheter was connected to the wood technologist. Appropriate waveform and blood pressure tracing was observed. The catheter was sutured in place and covered with a Tegaderm. The patient tolerated the procedure without any hemodynamic compromise. Estimated blood loss is approx. 10cc.
[2019-11-17] MEDS ORDERED: SODIUM BICARBONATE 8.4% 50 MEQ/50 ML VIAL IV ONE (19:12)
[2019-11-17] MEDS: SODIUM BICARBONATE 8.4% - 75 MEQ in SODIUM CHLORIDE 0.45% 1,000 ML IV SCH (21:03)
[2019-11-17] MEDS ORDERED: LACTATED RINGERS SOLUTION 1,000 ML/1,000 ML INFUS.BAG IV STA (21:37)
[2019-11-17 22:13] LABS: ARTERIAL BLD GAS O2 SATURATION 98.7 mmHg (95-98); ARTERIAL BLOOD GAS BASE EXCESS -27.4 mmol/L (-2-2); ARTERIAL BLOOD GAS PO2 236.8 mmHg (80-100)
[2019-11-17 22:17] LABS: PT'S TEMP 98.6; VENT MODE A/C; VENT RATE 26
[2019-11-17 22:20] LABS: ARTERIAL BLOOD GAS pH 6.835 (7.350-7.450)
[2019-11-17] MEDS ORDERED: SODIUM BICARBONATE 8.4% 50 MEQ/50 ML DISP.SYRIN IVPUSH ONE (22:24)
[2019-11-17] MEDS ORDERED: PHYTONADIONE 10 MG/1 ML AMP IVPB ONE (22:27)
--- NOTE | 2019-11-17 23:01 | PN ---
Progress Note (short form) - Note Progress Note: ABG Results ABG pH 6.835 (7.350-7.450) L* 11/17/19 22:00 ABG HCO3 4.7 mmol/L (22-27) L 11/17/19 22:00 ABG O2 Sat (Measured) 98.7 mmHg (95-98) H 11/17/19 22:00 ABG O2 Content No Result Required. 11/17/19 22:00 ABG Base Excess -27.4 mmol/L (-2-2) L 11/17/19 22:[address] Doran regarding the above noted ABG. Vent settings changed; RR Decreased to 20, TV increased to 400. 2amps Bicarb pushed stat. Further GOC discussion to be had with family as patient is not awake nor able to participate in discussion at this time. Attempted to wake patient; Patient is not responsive to verbal nor painful stim garfield (sternal rub). Attempted contacting patient's next of kin ([id number]) but was unable to reach him. Then progressed to calling Domi Jevon [phone]. She answered the phone but I was unable to understand what she was saying (slurred speech and nonsensible speech) and I was hence unable to have a conversation with her in regards to the patient's current condition.
[2019-11-17 23:43] LABS: ARTERIAL BLD GAS O2 SATURATION 99.1 mmHg (95-98); ARTERIAL BLOOD GAS PO2 229.7 mmHg (80-100)
[2019-11-17 23:53] LABS: O2 CONTENT 98.7 % vol
[2019-11-17 23:55] LABS: ARTERIAL BLOOD GAS pH 7.064 (7.350-7.450)
[2019-11-18] MEDS ORDERED: SODIUM CHLORIDE 1,000 ML IV STA (01:26)
[2019-11-18] MEDS: HYDROCORTISONE SOD SUCCINATE 100 MG/2 ML VIAL IVPUSH SCH (01:42)
[2019-11-18] MEDS: CEFEPIME 1 GM in DEXTROSE 5%-WATER 100 ML IVPB SCH (01:42)
[2019-11-18] MEDS: NOREPINEPHRINE BITARTRATE 16,000 MCG in SODIUM CHLORIDE 484 ML IV SCH (01:43)
[2019-11-18] MEDS: SODIUM BICARBONATE 8.4% 50 MEQ/50 ML VIAL IV SCH ×2 (02:06→06:36)
[2019-11-18] MEDS ORDERED: SODIUM CHLORIDE 1,000 ML IV SCH (04:00)
[2019-11-18] MEDS: SODIUM BICARBONATE 8.4% - 75 MEQ in SODIUM CHLORIDE 0.45% 1,000 ML IV SCH (05:36)
[2019-11-18] MEDS: VASOPRESSIN 40 UNITS in SODIUM CHLORIDE 98 ML IVPB SCH (05:37)
[2019-11-18] MEDS: VANCOMYCIN 1 GRAM (PRE-DOCKED) 1,000 MG/250 ML BAG IVPB SCH (05:37)
[2019-11-18 05:58] VITALS: TEMP 97
[2019-11-18 06:20] LABS: BASO % 0.2 % (0-2.0); EOS % 0.1 % (0-4.5); HEMATOCRIT 19.8 % (35.4-49); LYMPH % 7.9 % (8-40); MCH 28.3 pg (25.7-33.7); MEAN CELL VOLUME 97.8 fl (80-96); MEAN PLT VOLUME 7.5 fl (7.5-11.1); MONO % 1.7 % (3.8-10.2); NEUT % 90.1 % (42.8-82.8); PLATELET COUNT 198 K/MM3 (134-434); RBC 2.02 M/mm3 (4.00-5.60); WHITE BLOOD COUNT 25.1 K/mm3 (4.0-10.0)
[2019-11-18 06:21] LABS: ARTERIAL BLOOD GAS BASE EXCESS -24.8 mmol/L (-2-2)
[2019-11-18 06:27] LABS: PROTHROMBIN TIME (PATIENT) 65.6 SEC (9.7-13.0)
[2019-11-18 06:29] LABS: VENT MODE A/C; VENT RATE 20
[2019-11-18 06:30] LABS: ARTERIAL BLOOD GAS pH 6.929 (7.350-7.450)
[2019-11-18 06:39] LABS: HEMOGLOBIN 5.7 GM/dL (11.7-16.9)
[2019-11-18] MEDS ORDERED: SODIUM BICARBONATE 8.4% 50 MEQ/50 ML DISP.SYRIN IVPUSH ONE (06:42)
[2019-11-18 06:45] LABS: ALBUMIN 0.8 g/dl (3.4-5.0); BILIRUBIN,TOTAL 0.4 mg/dL (0.2-1); BLOOD UREA NITROGEN 33.6 mg/dL (7-18); MAGNESIUM 1.8 mg/dL (1.8-2.4); PHOSPHOROUS 6.9 mg/dL (2.5-4.9); POTASSIUM 4.8 mmol/L (3.5-5.1); TOT PROT 2.8 g/dl (6.4-8.2)
[2019-11-18] MEDS ORDERED: SODIUM BICARBONATE 8.4% 50 MEQ/50 ML VIAL ONE (06:47)
[2019-11-18 06:53] LABS: INR 5.46 (0.83-1.09)
[2019-11-18 07:01] LABS: CALCIUM 5.7 mg/dL (8.5-10.1)
--- NOTE | 2019-11-18 07:04 | PN ---
Progress Note (short form) - Note Progress Note: Case discussed with Fady Virginie (next of kin--[phone]). Fady made aware of pt's worsening condition. Fady recalls a conversation with his brother in law that the patient would not want any life saving interventions. We discussed at length that he is currently on multiple pressors (BP Supportive meds), now requiring pRBC (blood) transfusions and Fady says he does not believe Nitin would want any of this at this time. Additionally he makes mention that given his worsening condition, he believes patient would want all medical intervention stopped including cessation of pressor support, stopping the ventilator, no blood transfusion and using morphine to make him comfortable. Conversation confirmed with Dr. Mynor Grullon, Gricelda Hinton RN, Muna Kinsey RN.
[2019-11-18] MEDS ORDERED: LORazepam 2 MG/ML SDV VIAL IVPUSH PRN (07:18)
[2019-11-18] MEDS ORDERED: morphine CARPU-JECT 4 MG/1 ML DISP.SYRIN IVPUSH PRN (07:21)
[2019-11-18] MEDS ORDERED: MORPHINE SULFATE/0.9% NACL/PF 100 MG/100 ML BAG IVPB SCH (07:30)
--- NOTE | 2019-11-18 07:38 | PN ---
Progress Note (short form) - Note Progress Note: Approx 7am: Spoke to [facility] [address], spoke with Avis Holman and she said that the triage coordinator will call within 30-60min to let us know whether or not the patient is a candidate. Triage Coordinator: Ronen Lopez 7:40 am Ronen called - got extensive patient history and some LFTs, said that he will run it by his boss then get back to us. 7:58 am Ronen called - said that they decided to rule out the case and we can extubate the patient.
--- NOTE | 2019-11-18 07:59 | PN ---
Progress Note, Physician History of Present Illness: Events noted family wants comfort care discussed with ICU resident - Current Medication List Current Medications: Active Medications Artificial Tears (Artificial Tears) 1 drop OU QID PRN PRN Reason: DRY EYES Last Admin: 11/17/19 17:36 Dose: 1 drop Documented by: Artificial Tears (Lacri-Lube Eye Ointment -) 1 applic OU BID THEODORE Last Admin: 11/17/19 23:04 Dose: 1 applic Documented by: Morphine Sulfate (Morphine 100mg/100ml-0.9% Nacl) 100 mg in 100 mls @ 1 mls/hr IVPB TITR THEODORE; Protocol Lorazepam (Ativan Injection -) 2 mg IVPUSH Q6H PRN PRN Reason: ANXIETY Morphine Sulfate (Morphine Injection -) 4 mg IVPUSH Q10M PRN PRN Reason: PAIN LEVEL 6-10 Ondansetron HCl (Zofran Injection) 4 mg IVPUSH Q6H PRN PRN Reason: NAUSEA AND/OR VOMITING Last Admin: 11/16/19 11:18 Dose: 4 mg Documented by: - Objective Vital Signs: Vital Signs Temperature 97 F L 11/18/19 04:00 Pulse Rate 102 H 11/18/19 07:30 Respiratory Rate 25 H 11/18/19 07:30 Blood Pressure 102/50 L 11/18/19 07:30 O2 Sat by Pulse Oximetry (%) 100 11/17/19 05:46 Cardiovascular: Yes: S1, S2 Respiratory: Yes: Mechanically Ventilated Neurological: Yes: Unresponsive Labs: CBC, BMP 11/18/19 06:00 11/18/19 06:00 INR, PTT INR 5.46 (0.83-1.09) H* 11/18/19 06:00 Fibrinogen 201.0 mg/dL (238-498) L 11/17/19 16:45 Problem List - Problems (1) Chronic respiratory failure Assessment/Plan: -[facility] vent Code(s): J96.10 - CHRONIC RESPIRATORY FAILURE, UNSP W HYPOXIA OR HYPERCAPNIA (2) Hypotension Assessment/Plan: -On 3 pressers -Continue Abx -Cultures pending Code(s): I95.9 - HYPOTENSION, UNSPECIFIED (3) Anemia Assessment/Plan: s/p prbc Code(s): D64.9 - ANEMIA, UNSPECIFIED (4) Diabetes mellitus Code(s): E11.9 - TYPE 2 DIABETES MELLITUS WITHOUT COMPLICATIONS (5) Generalized edema Code(s): R60.1 - GENERALIZED EDEMA (6) Myasthenia gravis Code(s): G70.00 - MYASTHENIA GRAVIS WITHOUT (ACUTE) EXACERBATION (7) Dysphagia Code(s): R13.10 - DYSPHAGIA, UNSPECIFIED Assessment/Plan prognosis is poor and further resuscitation would be futile and families wishes are for comfort measures
[2019-11-18 08:22] LABS: ANISOCYTOSIS 1+; MACROCYTOSIS 0; PLATELET ESTIMATE NORMAL
[2019-11-18] MEDS ORDERED: morphine CARPU-JECT 4 MG/1 ML DISP.SYRIN IVPUSH ONE (09:06)
[2019-11-18] MEDS ORDERED: morphine SULFATE 4 MG/ML VIAL IVPUSH ONE (09:30)
[2019-11-18 10:01] VITALS: BP 80/45; PULSE 93
--- NOTE | 2019-11-18 10:49 | PN ---
Progress Note (short form) - Note Progress Note: NOTE: After discussion with next of kin, decision was made to proceed with comfort care. Asystole confirmed in 2 leads. There was no response to verbal or tactile stimuli. Pupils were mid-dilated and fixed. No breath sounds were appreciated over either lung field. No carotid pulse was palpable. No heart sounds and auscultated over entire precordium. Patient pronounced on 11/18/2019 at 10:21 AM. Next of kin Fady Rachel notified. Emotional support provided. Primary team notified. Attending physician notified. Jagdish to be called by nursing staff.
--- NOTE | 2019-11-18 11:45 | PN ---
Teaching Attending Note Name of Resident: Joseph Malone ATTENDING PHYSICIAN STATEMENT I saw and evaluated the patient. I reviewed the resident's note and discussed the case with the resident. I agree with the resident's findings and plan as documented. SUBJECTIVE: Pt seen and examined in the ICU. Made comfort care overnight, pt 10: 21AM. OBJECTIVE: Vital Signs Period Temp Pulse Resp BP Sys/Kidd Pulse Ox Last 24 Hr 95.0 F-97 F 78-105 18-26 36-135/23-73 Active Medications Artificial Tears (Artificial Tears) 1 drop OU QID PRN PRN Reason: DRY EYES Last Admin: 11/17/19 17:36 Dose: 1 drop Documented by: Artificial Tears (Lacri-Lube Eye Ointment -) 1 applic OU BID THEODORE Last Admin: 11/17/19 23:04 Dose: 1 applic Documented by: Morphine Sulfate (Morphine 100mg/100ml-0.9% Nacl) 100 mg in 100 mls @ 1 mls/hr IVPB TITR THEODORE; Protocol Last Admin: 11/18/19 09:44 Dose: 1 mg/hr, 1 mls/hr Documented by: Lorazepam (Ativan Injection -) 2 mg IVPUSH Q6H PRN PRN Reason: ANXIETY Morphine Sulfate (Morphine Injection -) 4 mg IVPUSH Q10M PRN PRN Reason: PAIN LEVEL 6-10 Ondansetron HCl (Zofran Injection) 4 mg IVPUSH Q6H PRN PRN Reason: NAUSEA AND/OR VOMITING Last Admin: 11/16/19 11:18 Dose: 4 mg Documented by: ASSESSMENT AND PLAN: Acute on Chronic Hypoxic Respiratory Failure UTI Pneumonia Sacral Decubitus Ulcer Septic Shock Lactic Acidosis Hyponatremia Myasthenia Gravis Hyperlipidemia DM GERD
--- NOTE | 2019-11-18 11:51 | CONSULT ---
Consult Consult Specialty:: Palliative care Referred by:: Susi Wolff Reason for Consultation:: npo, on mechanical ventilator, family requesting compassionate extubation - History of Present Illness Chief Complaint: failure to thrive History of Present Illness: 74 y/o male from [facility] with a PMHx of Chronic Respiratory Failure (Trach- vent dep), Myasthenia Gravis, HLD, DM, GERD, Pneumonia, Chronic lower extremity edema, recent admission for Septicemia- [facility] d/c 11/09. Admitted for Complicated UTI, Chronic Respiratory Failure with Hypoxia, G- Tube Placement. He was admitted on 11/15/19. As per ED noted patient had a swallow evaluation 2-3 days ago- silent aspiration. He has been NPO requiring PEG placement. Per [place] records patient has been on Cefalozin IV, Vancomycin PO. Also, patient was noted to have increased edema to lower extremities. He was noted to be hypotensive 11/15 night. He was on a/bs, started on stress dose steroids, vasopressors. He remained hypotensive, hypothermic and becoming more obtunded as the day progressed. As per Palliative care nurse Muna " Called and spoke with pts brother in law Fady Virginie for general information. 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 He then went to an assited living facility in [place] called [facility]. He was there until four months ago when he developed PNA and ended up in [facility] on breathing machine. Fady stating his 6 years ago (pts sister) he has a good friend Domi whom he met at [facility] and they have been his support. Fady stating that Nitin has been fightening this disease for over 40 years and he will not go down without a fight. He does believe he would want supportive measures at this point including feeding tube and CPR. Informed Fady that Nitin was approached about CPR and he informed this agent he would want CPR at this point. Discussed even without full capacity Nitin needs to be informed and agree with decisions being made." Patients condition showed no improvement and ABG later last night showed severe acidosis and pt unresponsive. As per Fady Rachel (next of kin--[phone])- patient would not want any life saving interventions and that he does not believe Nitin would want any aggressive interventions. Additionally he makes mention that given his worsening condition, he believes patient would want all medical intervention stopped including cessation of pressor support, stopping the ventilator, no blood transfusion and using morphine to make him comfortable. - History Source History Provided By: Medical Record Limitations to Obtaining History: Intubated - Past Medical History Cardio/Vascular: Yes: Hyperlipdemia Pulmonary: Yes: O2 Dependent, Pneumonia (VAP), Other (Chronic Respiratory Failure) Gastrointestinal: Yes: GERD Endocrine: Yes: Diabetes Mellitus - Past Surgical History Past Surgical History: Yes: Colostomy - Alcohol/Substance Use Hx Alcohol Use: No (Unknown) History of Substance Use: reports: None (Unknown) - Smoking History Smoking history: Never smoked - Social History ADL: Support Services History of Recent Travel: No Home Medications - Allergies Allergies/Adverse Reactions: Allergies Allergy/AdvReac Type Severity Reaction Status Date / Time aspirin Allergy Unknown Verified 11/15/19 21:31 Penicillins Allergy Unknown Verified 11/15/19 21:31 procainamide Allergy Unknown Verified 11/15/19 21:31 - Home Medications Home Medications: Ambulatory Orders Acetaminophen 325 mg PO PRN 11/16/19 Cefazolin [Ancef -] 2 gm IV ASDIR 11/16/19 Famotidine [Pepcid] 20 mg PO BID 11/16/19 Magnesium Oxide [Magnesium Oxide 400] 241.3 mg PO DAILY 11/16/19 Ondansetron [Zofran -] 8 mg PO BID 11/16/19 Vancomycin Oral Solution [Vancocin *Oral Solution*] 2.5 ml PO ASDIR 11/16/19 Family Medical History Family History: Unable to Obtain Review of Systems Unable to obtain ROS, reason: intubated Physical Exam Vital Signs: Vital Signs Temperature 97 F L 11/18/19 04:00 Pulse Rate 93 H 11/18/19 09:30 Respiratory Rate 24 H 11/18/19 09:30 Blood Pressure 80/45 L 11/18/19 09:30 O2 Sat by Pulse Oximetry (%) 100 11/17/19 05:46 HENT: Yes: Atraumatic, Normocephalic Respiratory: Yes: Mechanically Ventilated Neurological: Yes: Unresponsive Labs: CBC, BMP 11/18/19 06:00 11/18/19 06:00 Imaging - Results Chest X-ray: Report Reviewed Ultrasound: Report Reviewed Problem List - Problems (1) At risk for aspiration Code(s): Z91.89 - OTH PERSONAL RISK FACTORS, NOT ELSEWHERE CLASSIFIED (2) Chronic respiratory failure Code(s): J96.10 - CHRONIC RESPIRATORY FAILURE, UNSP W HYPOXIA OR HYPERCAPNIA (3) Hypotension Code(s): I95.9 - HYPOTENSION, UNSPECIFIED (4) Myasthenia gravis Code(s): G70.00 - MYASTHENIA GRAVIS WITHOUT (ACUTE) EXACERBATION Assessment/Plan 74 y/o male from [facility] with a PMHx of Chronic Respiratory Failure (Trach- vent dep), Myasthenia Gravis, HLD, DM, GERD, Pneumonia, Chronic lower extremity edema, recent admission for Septicemia- [facility] d/c 11/09. Admitted for Complicated UTI, Chronic Respiratory Failure with Hypoxia, G- Tube Placement. Patient in septic shock with unresponsiveness, hypotensive on 3 pressors, severely acidotic . Decision has been made after conferring with HCP for comfort care and compassionate extubation. Prognosis poor. Patient vent dependent at [facility], now with multiorgan failure. Chances of meaningful survival are slim. Would start on morphine drip 1 mg/h and titrate up for anxiety, SOB, tachypnea, tachycardia. Thankyou for allowing me to participate in the care of this patient. Please call with questions. Joey Jon MD [phone] Total time for chart review and coordination of care- 50 minutes.
--- NOTE | 2019-11-18 12:11 | EKG ---
Test Reason : Blood Pressure : / mmHG Vent. Rate : 067 BPM Atrial Rate : 067 BPM P-R Int : 154 ms QRS Dur : 146 ms QT Int : 466 ms P-R-T Axes : 075 019 040 degrees QTc Int : 492 ms SINUS RHYTHM WITH PREMATURE ATRIAL COMPLEXES POSSIBLE LEFT ATRIAL ENLARGEMENT RIGHT BUNDLE BRANCH BLOCK ABNORMAL ECG WHEN COMPARED WITH ECG OF 15-NOV-2019 21:24, PREMATURE ATRIAL COMPLEXES ARE NOW PRESENT NONSPECIFIC T WAVE ABNORMALITY, IMPROVED IN INFERIOR LEADS Confirmed by COY VERA MD ([id number]) on 11/18/2019 12:11:03 PM Referred By: Confirmed By:COY VERA MD
--- NOTE | 2019-11-18 12:11 | EKG ---
Test Reason : Blood Pressure : / mmHG Vent. Rate : 070 BPM Atrial Rate : 070 BPM P-R Int : 150 ms QRS Dur : 146 ms QT Int : 456 ms P-R-T Axes : 069 030 035 degrees QTc Int : 492 ms SINUS RHYTHM WITH PREMATURE ATRIAL COMPLEXES RIGHT BUNDLE BRANCH BLOCK ABNORMAL ECG WHEN COMPARED WITH ECG OF 16-NOV-2019 16:34, NO SIGNIFICANT CHANGE WAS FOUND Confirmed by COY VERA MD ([id number]) on 11/18/2019 12:10:33 PM Referred By: Confirmed By:COY VERA MD
--- NOTE | 2019-11-18 16:24 | DS ---
Physical Exam: SUBJECTIVE: Patient seen and examined at bedside. Case discussed with next of kin this morning and pt was made comfort care. Pt at 10:21 AM today. OBJECTIVE: Vital Signs Period Temp Pulse Resp BP Sys/Kidd Pulse Ox Last 24 Hr 96.6 F-97 F 89-105 20-26 36-135/23-60 PHYSICAL EXAM (per note) LABS Laboratory Results - last 24 hr 11/16/19 11/17/19 11/17/19 10:25 15:05 16:45 WBC RBC Hgb Hct MCV MCH MCHC RDW Plt Count MPV Absolute Neuts (auto) Neutrophils % Neutrophils % (Manual) Band Neutrophils % Lymphocytes % Lymphocytes % (Manual) Monocytes % Monocytes % (Manual) Eosinophils % Eosinophils % (Manual) Basophils % Basophils % (Manual) Myelocytes % (Man) Promyelocytes % (Man) Blast Cells % (Manual) Nucleated RBC % Metamyelocytes Hypochromia Platelet Estimate Polychromasia Poikilocytosis Anisocytosis Microcytosis Macrocytosis PT with INR INR PTT (Actin FS) Fibrinogen D-Dimer Anticoagulation Therapy Puncture Site Patient Temperature ABG pH ABG pCO2 ABG pO2 ABG HCO3 ABG O2 Sat (Measured) ABG O2 Content ABG Base Excess Raheem Test Patient On Oxygen O2 Delivery Device Oxygen Flow Rate Vent Mode Vent Rate Mechanical Rate PEEP Pressure Support Vent Sodium Potassium Chloride Carbon Dioxide Anion Gap BUN Creatinine Est GFR (CKD-EPI)AfAm Est GFR (CKD-EPI)NonAf Random Glucose Hemoglobin A1c % Lactic Acid 10.1 H* Calcium Phosphorus Magnesium Total Bilirubin AST ALT Alkaline Phosphatase Total Protein Albumin Blood Type O POSITIVE O POSITIVE Antibody Screen Negative Crossmatch See Detail 11/17/19 11/17/19 11/17/19 16:45 16:45 16:45 WBC 23.0 H RBC 2.73 L Hgb 7.8 L Hct 26.7 L MCV 97.8 H D MCH 28.5 MCHC 29.1 L RDW 26.6 H Plt Count 383 MPV 7.9 D Absolute Neuts (auto) 21.3 H Neutrophils % 92.8 H Neutrophils % (Manual) 89.0 H Band Neutrophils % 2.0 Lymphocytes % 4.4 L Lymphocytes % (Manual) 5.0 L D Monocytes % 2.4 L Monocytes % (Manual) 4 D Eosinophils % 0.3 D Eosinophils % (Manual) Basophils % 0.1 Basophils % (Manual) Myelocytes % (Man) Promyelocytes % (Man) Blast Cells % (Manual) Nucleated RBC % 0 Metamyelocytes Hypochromia 1+ Platelet Estimate Adequate Polychromasia Poikilocytosis Anisocytosis 3+ Microcytosis 1+ Macrocytosis 2+ PT with INR 38.30 H INR 3.21 H PTT (Actin FS) 88.4 H Fibrinogen 201.0 L D-Dimer 1745 H Anticoagulation Therapy Puncture Site Patient Temperature ABG pH ABG pCO2 ABG pO2 ABG HCO3 ABG O2 Sat (Measured) ABG O2 Content ABG Base Excess Raheem Test Patient On Oxygen O2 Delivery Device Oxygen Flow Rate Vent Mode Vent Rate Mechanical Rate PEEP Pressure Support Vent Sodium Potassium Chloride Carbon Dioxide Anion Gap BUN Creatinine Est GFR (CKD-EPI)AfAm Est GFR (CKD-EPI)NonAf Random Glucose Hemoglobin A1c % Lactic Acid Calcium Phosphorus Magnesium Total Bilirubin AST ALT Alkaline Phosphatase Total Protein Albumin Blood Type Antibody Screen Crossmatch 11/17/19 11/17/19 11/17/19 16:45 16:45 16:45 WBC RBC Hgb Hct MCV MCH MCHC RDW Plt Count MPV Absolute Neuts (auto) Neutrophils % Neutrophils % (Manual) Band Neutrophils % Lymphocytes % Lymphocytes % (Manual) Monocytes % Monocytes % (Manual) Eosinophils % Eosinophils % (Manual) Basophils % Basophils % (Manual) Myelocytes % (Man) Promyelocytes % (Man) Blast Cells % (Manual) Nucleated RBC % Metamyelocytes Hypochromia Platelet Estimate Polychromasia Poikilocytosis Anisocytosis Microcytosis Macrocytosis PT with INR INR PTT (Actin FS) Fibrinogen D-Dimer Anticoagulation Therapy No Result Required. Puncture Site Left brachial Patient Temperature No Result Required. ABG pH 7.045 L* ABG pCO2 25.80 L ABG pO2 140.4 H ABG HCO3 6.9 L ABG O2 Sat (Measured) 97.6 ABG O2 Content No Result Required. ABG Base Excess -22.1 L Raheem Test Positive Patient On Oxygen No Result Required. O2 Delivery Device Oxygen Flow Rate No Result Required. Vent Mode No Result Required. Vent Rate No Result Required. Mechanical Rate No Result Required. PEEP No Result Required. Pressure Support Vent No Result Required. Sodium 134 L Potassium 4.6 Chloride 108 H Carbon Dioxide 7 L Anion Gap 19 H BUN 37.9 H Creatinine 1.1 Est GFR (CKD-EPI)AfAm 77.32 Est GFR (CKD-EPI)NonAf 66.71 Random Glucose 133 H Hemoglobin A1c % Lactic Acid Calcium 7.0 L Phosphorus 6.6 H Magnesium 2.1 Total Bilirubin 0.4 AST 28 ALT < 6 L Alkaline Phosphatase 385 H Total Protein 4.2 L Albumin 1.4 L Blood Type Cancelled Antibody Screen Crossmatch 11/17/19 11/17/19 11/18/19 22:00 23:38 00:30 WBC RBC Hgb Hct MCV MCH MCHC RDW Plt Count MPV Absolute Neuts (auto) Neutrophils % Neutrophils % (Manual) Band Neutrophils % Lymphocytes % Lymphocytes % (Manual) Monocytes % Monocytes % (Manual) Eosinophils % Eosinophils % (Manual) Basophils % Basophils % (Manual) Myelocytes % (Man) Promyelocytes % (Man) Blast Cells % (Manual) Nucleated RBC % Metamyelocytes Hypochromia Platelet Estimate Polychromasia Poikilocytosis Anisocytosis Microcytosis Macrocytosis PT with INR INR PTT (Actin FS) Fibrinogen D-Dimer Anticoagulation Therapy No Result Required. No Result Required. Puncture Site No Result Required. Arterial line Patient Temperature 98.6 No Result Required. ABG pH 6.835 L* 7.064 L* ABG pCO2 28.60 L 26.70 L ABG pO2 236.8 H 229.7 H ABG HCO3 4.7 L 7.5 L ABG O2 Sat (Measured) 98.7 H 99.1 H ABG O2 Content No Result Required. 98.7 ABG Base Excess -27.4 L -21.0 L Raheem Test No Result Required. Patient On Oxygen Yes Yes O2 Delivery Device Vent Vent Oxygen Flow Rate No Result Required. 60 Vent Mode A/c No Result Required. Vent Rate 26 No Result Required. Mechanical Rate No Result Required. No Result Required. PEEP 5.0 No Result Required. Pressure Support Vent 350 No Result Required. Sodium Potassium Chloride Carbon Dioxide Anion Gap BUN Creatinine Est GFR (CKD-EPI)AfAm Est GFR (CKD-EPI)NonAf Random Glucose Hemoglobin A1c % Lactic Acid 14.2 H* Calcium Phosphorus Magnesium Total Bilirubin AST ALT Alkaline Phosphatase Total Protein Albumin Blood Type Antibody Screen Crossmatch 11/18/19 11/18/19 11/18/19 06:00 06:00 06:00 WBC 25.1 H RBC 2.02 L Hgb 5.7 L* Hct 19.8 L D MCV 97.8 H MCH 28.3 MCHC 29.0 L RDW 26.0 H Plt Count 198 D MPV 7.5 Absolute Neuts (auto) 22.6 H Neutrophils % 90.1 H Neutrophils % (Manual) 86.9 H Band Neutrophils % 0.0 Lymphocytes % 7.9 L D Lymphocytes % (Manual) 10.1 D Monocytes % 1.7 L Monocytes % (Manual) 3 L Eosinophils % 0.1 Eosinophils % (Manual) 0.0 Basophils % 0.2 Basophils % (Manual) 0.0 Myelocytes % (Man) 0 Promyelocytes % (Man) 0 Blast Cells % (Manual) 0 Nucleated RBC % 6 H Metamyelocytes 0 Hypochromia 0 Platelet Estimate Normal Polychromasia 1+ Poikilocytosis 0 Anisocytosis 1+ Microcytosis 1+ Macrocytosis 0 PT with INR INR PTT (Actin FS) Fibrinogen D-Dimer Anticoagulation Therapy Puncture Site Patient Temperature ABG pH ABG pCO2 ABG pO2 ABG HCO3 ABG O2 Sat (Measured) ABG O2 Content ABG Base Excess Raheem Test Patient On Oxygen O2 Delivery Device Oxygen Flow Rate Vent Mode Vent Rate Mechanical Rate PEEP Pressure Support Vent Sodium 138 Potassium 4.8 Chloride 110 H Carbon Dioxide 5 L Anion Gap 24 H BUN 33.6 H Creatinine 1.0 Est GFR (CKD-EPI)AfAm 86.76 Est GFR (CKD-EPI)NonAf 74.86 Random Glucose 29 L* Hemoglobin A1c % < 3.5 L Lactic Acid Calcium 5.7 L* Phosphorus 6.9 H Magnesium 1.8 Total Bilirubin 0.4 AST 707 H ALT 29 Alkaline Phosphatase 376 H Total Protein 2.8 L Albumin 0.8 L Blood Type Antibody Screen Crossmatch 11/18/19 11/18/19 11/18/19 06:00 06:00 06:00 WBC RBC Hgb Hct MCV MCH MCHC RDW Plt Count MPV Absolute Neuts (auto) Neutrophils % Neutrophils % (Manual) Band Neutrophils % Lymphocytes % Lymphocytes % (Manual) Monocytes % Monocytes % (Manual) Eosinophils % Eosinophils % (Manual) Basophils % Basophils % (Manual) Myelocytes % (Man) Promyelocytes % (Man) Blast Cells % (Manual) Nucleated RBC % Metamyelocytes Hypochromia Platelet Estimate Polychromasia Poikilocytosis Anisocytosis Microcytosis Macrocytosis PT with INR 65.60 H INR 5.46 H* PTT (Actin FS) 137.0 H Fibrinogen 115.0 L D-Dimer Anticoagulation Therapy Puncture Site Patient Temperature ABG pH ABG pCO2 ABG pO2 ABG HCO3 ABG O2 Sat (Measured) ABG O2 Content ABG Base Excess Raheem Test Patient On Oxygen O2 Delivery Device Oxygen Flow Rate Vent Mode Vent Rate Mechanical Rate PEEP Pressure Support Vent Sodium Potassium Chloride Carbon Dioxide Anion Gap BUN Creatinine Est GFR (CKD-EPI)AfAm Est GFR (CKD-EPI)NonAf Random Glucose Hemoglobin A1c % Lactic Acid > 15.0 H* Calcium Phosphorus Magnesium Total Bilirubin AST ALT Alkaline Phosphatase Total Protein Albumin Blood Type Antibody Screen Crossmatch 11/18/19 06:10 WBC RBC Hgb Hct MCV MCH MCHC RDW Plt Count MPV Absolute Neuts (auto) Neutrophils % Neutrophils % (Manual) Band Neutrophils % Lymphocytes % Lymphocytes % (Manual) Monocytes % Monocytes % (Manual) Eosinophils % Eosinophils % (Manual) Basophils % Basophils % (Manual) Myelocytes % (Man) Promyelocytes % (Man) Blast Cells % (Manual) Nucleated RBC % Metamyelocytes Hypochromia Platelet Estimate Polychromasia Poikilocytosis Anisocytosis Microcytosis Macrocytosis PT with INR INR PTT (Actin FS) Fibrinogen D-Dimer Anticoagulation Therapy No Result Required. Puncture Site Arterial line Patient Temperature No Result Required. ABG pH 6.929 L* ABG pCO2 25.80 L ABG pO2 241.0 H ABG HCO3 5.3 L ABG O2 Sat (Measured) 99.0 H ABG O2 Content No Result Required. ABG Base Excess -24.8 L Raheem Test Not applicable Patient On Oxygen Yes O2 Delivery Device Vent Oxygen Flow Rate 60% Vent Mode A/c Vent Rate 20 Mechanical Rate No Result Required. PEEP 5.0 Pressure Support Vent 400 Sodium Potassium Chloride Carbon Dioxide Anion Gap BUN Creatinine Est GFR (CKD-EPI)AfAm Est GFR (CKD-EPI)NonAf Random Glucose Hemoglobin A1c % Lactic Acid Calcium Phosphorus Magnesium Total Bilirubin AST ALT Alkaline Phosphatase Total Protein Albumin Blood Type Antibody Screen Crossmatch HOSPITAL COURSE: 74yo M from [facility] with PMHx of Chronic Respiratory Failure (Trach - vent dep), Myasthenia Gravis, HLD, DM, GERD, Pneumonia, Chronic lower extremity edema, and anasarca was admitted for PEG tube placement and ICU consulted due to hemondynamic instabilty and concern for septic shock. Palliative Care, ID, and Renal were consulted. Pt was started on IV antibiotics (vancomycin, cefepime), IV pressors, and aggressive IV fluid hydration. Pt was also mechanically ventilated through his trach. The patient's worsening condition and poor prognosis was discussed with his next of kin (Fady Rachel) and a decision was made for comfort care. The patient at 10:21 AM on 11/18/2019. Date of Admission:11/15/19 Date of Discharge: 11/18/19 Minutes to complete discharge: 38 Discharge Summary Problems reviewed: Yes Reason For Visit: UNABLE TO EAT Condition: Guarded - Instructions Referrals: Christ Holder MD [Primary Care Provider] - Disposition: - Home Medications Comprehensive Discharge Medication List: Ambulatory Orders Acetaminophen 325 mg PO PRN 11/16/19 Cefazolin [Ancef -] 2 gm IV ASDIR 11/16/19 Famotidine [Pepcid] 20 mg PO BID 11/16/19 Magnesium Oxide [Magnesium Oxide 400] 241.3 mg PO DAILY 11/16/19 Ondansetron [Zofran -] 8 mg PO BID 11/16/19 Vancomycin Oral Solution [Vancocin *Oral Solution*] 2.5 ml PO ASDIR 11/16/19 This patient is new to me today: No Emergency Visit: Yes ED Registration Date: 11/15/19 Care time: The patient presented to the Emergency Department on the above date and was hospitalized for further evaluation of their emergent condition. Critical Care patient: Yes Total Critical Care Time (in minutes): 38 Critical Care Statement: The care of this patient involved high complexity decision making to prevent further life threatening deterioration of the patient's condition and/or to evaluate & treat vital organ system(s) failure or risk of failure. - Discharge Referral Referred to [facility] No ATTENDING PHYSICIAN STATEMENT I saw and evaluated the patient. I reviewed the resident's note and discussed the case with the resident. I agree with the resident's findings and plan as documented. SUBJECTIVE: OBJECTIVE: ASSESSMENT AND PLAN:
== END 2019-11-18 10:30 | disposition expired | DRG 871 ==
LOC: JER 19:34 → JERBED 20:39 → J5S 11-16 12:58 → JICU 11-17 02:05
PROVIDERS: ADMIT Internal Medicine; ATTEND Family Medicine
PROC: 5A1945Z Respiratory Ventilation, 24-96 Consecutive Hours (ICD-10-PCS; principal; 2019-11-15)
PROC: 4A133B1 Monitoring of Arterial Pressure, Peripheral, Percutaneous Approach (ICD-10-PCS; 2019-11-15)
PROC: 4A133J1 Monitoring of Arterial Pulse, Peripheral, Percutaneous Approach (ICD-10-PCS; 2019-11-17)
PROC: 30233N1 Transfusion of Nonautologous Red Blood Cells into Peripheral Vein, Percutaneous Approach (ICD-10-PCS; 2019-11-17)
DX: A41.9 Sepsis, unspecified organism (principal); L89.314 Pressure ulcer of right buttock, stage 4; L89.324 Pressure ulcer of left buttock, stage 4; J69.0 Pneumonitis due to inhalation of food and vomit; R65.21 Severe sepsis with septic shock; J96.21 Acute and chronic respiratory failure with hypoxia; N39.0 Urinary tract infection, site not specified; J96.11 Chronic respiratory failure with hypoxia; E87.2 Acidosis; E87.1 Hypo-osmolality and hyponatremia; Z99.11 Dependence on respirator [ventilator] status; G70.00 Myasthenia gravis without (acute) exacerbation; E11.9 Type 2 diabetes mellitus without complications; E78.5 Hyperlipidemia, unspecified; K21.9 Gastro-esophageal reflux disease without esophagitis; D64.9 Anemia, unspecified; R13.10 Dysphagia, unspecified; D72.829 Elevated white blood cell count, unspecified; Z93.0 Tracheostomy status; I95.9 Hypotension, unspecified
CPT/HCPCS: 36415; 36430; 36600; 71045-TC-FY; 76705-TC; 76775-TC; 80053; 81003; 82803; 83036; 83605; 83615; 83735; 84100; 85025; 85362; 85379; 85384; 85610; 85730; 86140; 86850; 86900; 86901; 86922; 87040; 87070; 87077; 87086; 87186; 87205; 90670; 93005; 93010; 94002; 99285-25; G0480; J0131; P9017; P9047; U0003